=== PATIENT | male | born 1980 | race Caucasian/White ===

== ENCOUNTER 2020-04-29 09:24 | Observation (INO) | payer BC, OTHER ==
[~2020-04-29] VITALS: Ht 177.8 cm; Wt 89.4 kg
[~2020-04-29 09:24] MED LIST: AZOR 10-40 MG1 EACH PO; METOPROLOL TART25 MG PO
[2020-04-29 10:05] LABS: BASOPHILS # (AUTO) 0.1 (0.0-0.1); BASOPHILS % 1.6 % (0.0-1.0); EOSINOPHILS # (AUTO) 0.1 (0.0-0.4); EOSINOPHILS % 2.6 % (0.0-6.0); HEMATOCRIT 30.9 % (38.2-49.6); HEMOGLOBIN 10.3 g/dL (14.0-18.0); LYMPHOCYTES # (AUTO) 0.9 (1.0-3.2); LYMPHOCYTES % 22.1 % (18.0-39.1); MEAN CORPUSCULAR HEMOGLOBIN 34.7 pg (28-32); MEAN CORPUSCULAR HGB CONC 33.3 g/dL (31-35); MONOCYTES # (AUTO) 0.5 (0.2-0.8); MONOCYTES % 11.7 % (4.4-11.3); NEUTROPHILS # (AUTO) 2.3 (2.1-6.9); NEUTROPHILS % 60.2 % (38.7-80.0); PLATELET COUNT 189 x10e3/uL (140-360); RED BLOOD COUNT 2.97 x10e6/uL (4.3-5.7); RED CELL DISTRIBUTION WIDTH 12.6 % (11.7-14.4)
[2020-04-29 10:37] LABS: ALBUMIN 4.3 g/dL (3.5-5.0); ALBUMIN/GLOBULIN RATIO 1.2 (0.8-2.0); ANION GAP 21.2 mmol/L (8-16); CALCIUM 10.1 mg/dL (8.4-10.2); CREATININE, SERUM 3.75 mg/dL (0.72-1.25); POTASSIUM 4.2 mmol/L (3.5-5.1)
[2020-04-29 10:44] LABS: CREATINE KINASE MB 0.9 ng/mL (0-5.0)
--- NOTE | 2020-04-29 10:47 | Emergency Department Note ---
History of Present Illnes History of Present Illness Chief Complaint: General Medicine Complaints History of Present Illness This is a 39 year old male arrives to the ED after a syncopal episode yesterday. Spoke to Janice Harris and from patient's PCPs office given their concerns of recent acute kidney injury as well as other abnormal lab work. Patient states this is worse with any Over walk long distances. Patient admits to multiple episodes of "passing out".. Chief Complaint Comment PATIENT IN FROM DR DILLON'S OFFICE FOR EVALUATION OF ABNORMAL LABS AND SYNCOPE. PATIENT STATES HAS BEEN FEELING POORLY FOR ANOUT A M ONT. PATIENT REPORTS DIZZINESS AND 2 SYNCOPAL EPISODES AT HOME. PATIENT ALERT AND ORIENTED, RESP EVEN AND NONLABORED, APPEARS IN NO DISTRESS Historian: Patient Arrival Mode: Car Onset (how long ago): day(s) Severity: mild Onset quality: sudden Duration (how long): day(s) Timing of current episode: intermittent Progression: worsening Chronicity: new Past Medical/Family History Physician Review I have reviewed the patient's past medical and family history. Any updates have been documented here. Past Medical History Recent Fever: No Clinical Suspicion of Infectio: No New/Unexplained Change in Ment: No Past Medical History: Hypertension Past Surgical History: Hip Replacement Other Surgery: RIGHT ANKLE BILATERAL HIP REPLACEMENT RIGHT HAND SURGERY LEFT KNEE SURGERY Family History Family history of heart diseas: Yes Other Last Tetanus: OOD Review of Systems Review of Systems Constitutional: Reports as per HPI, Reports weakness EENTM: Reports no symptoms Cardiovascular: Reports no symptoms Respiratory: Reports no symptoms Gastrointestinal: Reports no symptoms Genitourinary: Reports no symptoms Musculoskeletal: Reports no symptoms Integumentary: Reports no symptoms Neurological: Reports as per HPI Psychological: Reports no symptoms Endocrine: Reports no symptoms Hematological/Lymphatic: Reports no symptoms Physical Exam Related Data Allergies: Coded Allergies: codeine (Verified Allergy, Mild, SOB, 04/29/20) Triage Vital Signs Vital Signs Date Time Temp Pulse Resp B/P (MAP) Pulse Ox O2 Delivery O2 Flow Rate FiO2 04/29/20 09:24 97.1 86 18 134/82 99 Vital signs reviewed: Yes Physical Exam CONSTITUTIONAL Constitutional: Present well-developed, Present well-nourished HENT HENT: Present normocephalic, Present atraumatic, Present oropharynx clear/moist, Present nose normal HENT L/R: Present left ext ear normal, Present right ext ear normal EYES Eyes: Reports PERRL, Reports conjunctivae normal NECK Neck: Present ROM normal PULMONARY Pulmonary: Present effort normal, Present breath sounds normal CARDIOVASCULAR Cardiovascular: Present regular rhythm, Present heart sounds normal, Present capillary refill normal, Present normal rate GASTROINTESTINAL Abdominal: Present soft, Present nontender, Present bowel sounds normal GENITOURINARY Genitourinary: Present exam deferred SKIN Skin: Present warm, Present dry MUSCULOSKELETAL Musculoskeletal: Present ROM normal NEUROLOGICAL Neurological: Present alert, Present oriented x 3, Present no gross motor or sensory deficits PSYCHOLOGICAL Psychological: Present mood/affect normal, Present judgement normal Results Laboratory Result Diagram: 04/29/20 0933 Laboratory Laboratory Tests Test 04/29/20 09:33 White Blood Count 3.85 x10e3/uL (4.8-10.8) Red Blood Count 2.97 x10e6/uL (4.3-5.7) Hemoglobin 10.3 g/dL (14.0-18.0) Hematocrit 30.9 % (38.2-49.6) Mean Corpuscular Volume 104.0 fL (81-99) Mean Corpuscular Hemoglobin 34.7 pg (28-32) Mean Corpuscular Hemoglobin Concent 33.3 g/dL (31-35) Red Cell Distribution Width 12.6 % (11.7-14.4) Platelet Count 189 x10e3/uL (140-360) Neutrophils (%) (Auto) 60.2 % (38.7-80.0) Lymphocytes (%) (Auto) 22.1 % (18.0-39.1) Monocytes (%) (Auto) 11.7 % (4.4-11.3) Eosinophils (%) (Auto) 2.6 % (0.0-6.0) Basophils (%) (Auto) 1.6 % (0.0-1.0) Neutrophils # (Auto) 2.3 (2.1-6.9) Lymphocytes # (Auto) 0.9 (1.0-3.2) Monocytes # (Auto) 0.5 (0.2-0.8) Eosinophils # (Auto) 0.1 (0.0-0.4) Basophils # (Auto) 0.1 (0.0-0.1) Absolute Immature Granulocyte (auto 0.07 x10e3/uL (0-0.1) Lab results reviewed: Yes Laboratory comments Laboratory Tests Test 04/29/20 10:39 04/29/20 09:33 White Blood Count 3.85 x10e3/uL (4.8-10.8) Red Blood Count 2.97 x10e6/uL (4.3-5.7) Hemoglobin 10.3 g/dL (14.0-18.0) Hematocrit 30.9 % (38.2-49.6) Mean Corpuscular Volume 104.0 fL (81-99) Mean Corpuscular Hemoglobin 34.7 pg (28-32) Mean Corpuscular Hemoglobin Concent 33.3 g/dL (31-35) Red Cell Distribution Width 12.6 % (11.7-14.4) Platelet Count 189 x10e3/uL (140-360) Neutrophils (%) (Auto) 60.2 % (38.7-80.0) Lymphocytes (%) (Auto) 22.1 % (18.0-39.1) Monocytes (%) (Auto) 11.7 % (4.4-11.3) Eosinophils (%) (Auto) 2.6 % (0.0-6.0) Basophils (%) (Auto) 1.6 % (0.0-1.0) Neutrophils # (Auto) 2.3 (2.1-6.9) Lymphocytes # (Auto) 0.9 (1.0-3.2) Monocytes # (Auto) 0.5 (0.2-0.8) Eosinophils # (Auto) 0.1 (0.0-0.4) Basophils # (Auto) 0.1 (0.0-0.1) Absolute Immature Granulocyte (auto 0.07 x10e3/uL (0-0.1) Sodium Level 134 mmol/L (136-145) Potassium Level 4.2 mmol/L (3.5-5.1) Chloride Level 100 mmol/L (98-107) Carbon Dioxide Level 17 mmol/L (22-29) Anion Gap 21.2 mmol/L (8-16) Blood Urea Nitrogen 61 mg/dL (7-26) Creatinine 3.75 mg/dL (0.72-1.25) Estimat Glomerular Filtration Rate 18 ML/MIN (60-) BUN/Creatinine Ratio 16 (6-25) Glucose Level 95 mg/dL (74-118) Calcium Level 10.1 mg/dL (8.4-10.2) Total Bilirubin 0.3 mg/dL (0.2-1.2) Aspartate Amino Transf (AST/SGOT) 172 IU/L (5-34) Alanine Aminotransferase (ALT/SGPT) 183 IU/L (0-55) Alkaline Phosphatase 55 IU/L (40-150) Creatine Kinase 50 IU/L (30-200) Creatine Kinase MB 0.90 ng/mL (0-5.0) Troponin I 0.012 ng/mL (0-0.300) Total Protein 7.8 g/dL (6.5-8.1) Albumin 4.3 g/dL (3.5-5.0) Globulin 3.5 g/dL (2.3-3.5) Albumin/Globulin Ratio 1.2 (0.8-2.0) Procedures 12 Lead ECG Interpretation ECG Interpretation : ECG: ECG 1 Prior ECG tracings: reviewed Rate: normal QRS axis: normal ST segments normal: Yes T wave inversion: II, III, aVF, V1-V6 Assessment & Plan Medical Decision Making MDM 39-year-old male arrives to the ED with concerns of dizziness, multiple syncopal episodes. Patient's lab work concerning for acute renal insufficiency, case discussed with Dr. Sanchez Assessment & Plan Final Impression: (1) Syncope (2) JUAN (acute kidney injury) Depart Disposition: ADMITTED Last Vital Signs Date Time Temp Pulse Resp B/P (MAP) Pulse Ox O2 Delivery O2 Flow Rate FiO2 04/29/20 09:24 97.1 86 18 134/82 99 Home Meds Reported Medications Amlodipine Bes/Olmesartan Med (SHERI 10-40 MG TABLET) 1 Each Tablet, 1 TAB PO DAILY 08/20/14 Metoprolol Tartrate (METOPROLOL TARTRATE) 25 Mg Tablet, 25 MG PO BID, TAB 08/20/14 LEVY PALOMO DO Apr 29, 2020 11:04
[2020-04-29 11:55] VITALS: BP 129/81
[2020-04-29 11:59] VITALS: BP 129/71
--- NOTE | 2020-04-29 12:00 | NUR ---
The pt. arrived from the ER to room 203 and was welcomed to the unit. Admitting procedures were carried out and the drLetitia was called to request further orders.
[2020-04-29 12:15] VITALS: BP 129/81
[2020-04-29] MEDS ORDERED: SODIUM CHLORIDE 0.9% 1000ML 1,000 ML IV SCH (14:15)
--- NOTE | 2020-04-29 14:15 | NUR ---
Second call placed t Dr. Sanchez for orders and orders received post imparting lab results. Consult for renal specialist received and called.
[2020-04-29] MEDS ORDERED: SODIUM BICARBONATE 8.4% 50 ML VIAL IV STA (14:31)
--- NOTE | 2020-04-29 14:35 | NUR ---
I spoke with Dr. Noyola nephrology and order received to add sodium bicarb to iv fluids.
[2020-04-29 15:50] VITALS: BP 108/71
--- NOTE | 2020-04-29 16:17 | Diagnostic Imaging Report ---
EXAM: Renal Ultrasound INDICATION: ^acute kidneyinjury COMPARISON: None TECHNIQUE: Transverse and longitudinal images of the kidneys and bladder were obtained. FINDINGS: Right Kidney: Length: 10.3 cm Appearance: Normal echogenicity. Collecting system: No hydronephrosis Stones: None Cyst/Mass: None Left Kidney: Length: 10.7 cm Appearance: Normal echogenicity. Collecting system: No hydronephrosis Stones: None Cyst/Mass: None Bladder: No mass or calculi. Bilateral ureteral jets visualized. Prevoid volume estimate of 13 cc. The prostate is not well visualized. Incidental note is made of hepatic steatosis. IMPRESSION: No renal calculi or hydronephrosis. Signed by: Aris Howe MD on 04/29/2020 4:14 PM
[2020-04-29] MEDS: SODIUM BICARBONATE 8.4% 100 ML in SODIUM CHLORIDE 0.45% 1,000 ML IV SCH (16:51)
--- NOTE | 2020-04-29 18:25 | NUR ---
Renal Consult Note - 04/29/2020 History of Present Illness Chief Complaint: episodes of syncope and passing out History of Present Illness 39 yo male with h/o early onset HTN was sent to hospital because of elevated creatinine. He reports feeling weak, dizzy and has had 2 episodes when he passed out in last one month. He had a hip surgery in 10/29 and was told his renal function was out of range at that time probably from volume deple tion. About 2 weeks later he had to spend a night in ER and was told he was in alcohol withdrawal. Since then he has not repeated his blood tests until now when his creatinine was found to be out of range. He does report poor PO intake but no other complaints. He has no symptoms or signs of obstructive Uropathy. He was diagnosed with HTN in early 20s but was never tested for secondary HTN acc to him. Patient also reports taking multiple doses of Advil for 3 years everyday for pain in hips. Past Medical History Recent Fever: No Clinical Suspicion of Infectio: No New/Unexplained Change in Ment: No Past Medical History: Hypertension Past Surgical History: Hip Replacement Other Surgery: RIGHT ANKLE BILATERAL HIP REPLACEMENT RIGHT HAND SURGERY LEFT KNEE SURGERY Family History Family history of heart diseas: Yes Other Last Tetanus: OOD Review of Systems Constitutional: Reports as per HPI, Reports weakness EENTM: Reports no symptoms Cardiovascular: Reports no symptoms Respiratory: Reports no symptoms Gastrointestinal: Reports no symptoms Genitourinary: Reports no symptoms Musculoskeletal: Reports no symptoms Integumentary: Reports no symptoms Neurological: Reports as per HPI Psychological: Reports no symptoms Endocrine: Reports no symptoms Hematological/Lymphatic: Reports no symptoms Physical Exam Allergies: Coded Allergies: codeine (Verified Allergy, Mild, SOB, 04/29/20) Triage Vital Signs Vital Signs Date Time TempPulseRespB/P (MAP)Pulse OxO2 DeliveryO2 Flow RateFiO2 04/29/20 09:[id number]/[id number] Vital signs reviewed: Yes Physical Exam Constitutional: Present well-developed, Present well-nourished HENT: Present normocephalic, Present atraumatic, Present oropharynx clear/moist, Present nose normal Eyes: Reports PERRL, Reports conjunctivae normal Neck: Present ROM normal Pulmonary: Present effort normal, Present breath sounds normal Cardiovascular: Present regular rhythm, Present heart sounds normal, Present capillary refill normal, Present normal rate Abdominal: Present soft, Present nontender, Present bowel sounds normal Genitourinary: Present exam deferred Skin: Present warm, Present dry Musculoskeletal: Present ROM normal Neurological: Present alert, Present oriented x 3, Present no gross motor or sensory deficits Psychological: Present mood/affect normal, Present judgement normal Results - Lab results reviewed in detail - importantly - Na 134, K 4.2, BUN 61, Cr 3.75, CO2 17,Ca 10.1 - HgB 10.1, Plt 189 - AST 172, ALT 183 Assessment & Plan Ac Kidney Injury Likely on CKD, possible NSAID associated Nephropathy. Patient has taken heavy doses of Advil between 2016 - 2019 but claims to have stopped it now. volume depletion Metabolic Acidosis Hypertension Anemia - ??? of chronic disease Mild Hypercalcemia - from volume depletion Plan - - continue with IVF - continue bicarb - will get Renal US with Doppler - will need to rule out secondary Hypertension. - work up can be done as outpatient - strict I & O - no Nephrotoxins like NSAID - get UPEP/SPEP with JEVON
[2020-04-29 18:45] LABS: % IRON SATURATION 42 % (15-50); IRON 133 ug/dL (65-175); TOTAL IRON BINDING CAPACITY 316 ug/dL (261-478); TRANSFERRIN 226 mg/dL (174-364)
[2020-04-29 20:00] VITALS: BP 101/67
[2020-04-29 20:47] LABS: CREATINE KINASE MB 0.7 ng/mL (0-5.0)
[2020-04-29 20:53] VITALS: BP 101/67
--- NOTE | 2020-04-29 21:56 | History and Physical ---
CHIEF COMPLAINT: A 39-year-old gentleman, who came into the hospital for acute renal failure. HISTORY OF PRESENTING ILLNESS: Mr. Riki Duran with a history of hypertension, was usual in his state of health until about a couple of weeks ago, the patient started to have some dizziness, some near syncopal episodes. The patient was seen in the primary care office yesterday and lab work was done and the patient was seen to have elevated creatinine and low hemoglobin count and also elevated liver enzymes count. The patient brought in the hospital for reperfusion of kidneys. PAST MEDICAL HISTORY: 1. History of hypertension as mentioned above. 2. History of bilateral hip replacement for osteonecrosis. 3. History of hand surgery and left knee surgery. SOCIAL HISTORY: Positive for EtOH. He drinks about 6 drinks a day. No smoking. No history of drug abuse. FAMILY HISTORY: Positive for both mother and father with heart disease and hypertension. REVIEW OF SYSTEMS: Negative for chest pain. No shortness of breath. Positive for dizziness. Positive for syncope. No nausea. No vomiting. No diarrhea. No constipation. No rectal bleeding. No hematochezia. No hematemesis. No polyuria. No polydipsia. ALLERGIES: THE PATIENT IS ALLERGIC TO CODEINE. PHYSICAL EXAMINATION: GENERAL: The patient is alert and oriented x3, in no acute distress. HEENT: Normocephalic and atraumatic. Pupils are reactive to light and accommodation. CVS: S1 and S2 normal. Regular rate and rhythm. ABDOMEN: Soft, nontender, nondistended. EXTREMITIES: No clubbing. No cyanosis. Positive for decreased hair in the lower extremities. The patient has apparently had also vein procedure. The patient with surgical history of venous ablation. LABORATORY VALUES: White count is 3.85, hemoglobin of 10.3, hematocrit of 30.9, RDW is 12.6. Chemistry shows sodium 134, potassium is 4.2, BUN of 61, creatinine of 3.75. EGFR of 18. AST and ALT 172 and 183. SEROLOGY: Coronavirus is pending. IMAGING STUDIES: Renal ultrasound which was ordered showed no renal calculi or hydronephrosis. Right kidney and left kidney normal in size, normal echogenicity. ASSESSMENT: Mr. Riki Duran with: 1. Acute renal failure on top of chronic renal failure. The patient was apparently told he had chronic renal failure when he had bilateral hip replacement and the patient also has to be taken away from NSAID. He has a 3-year history of NSAID. 2. Hypertension. Probably, we will take him off the ARB use and hydrochlorothiazide because of the florid prerenal renal failure. 3. History of NSAID use in the past. 4. History of alcohol abuse. 5. History of avascular necrosis of bilateral hips. PLAN: Hydration. Change his medication to nifedipine. Renal artery ultrasound will also be done and finally, the patient will continue with IV hydration. Further recommendation per clinical course. For further information, look in the chart. A consult also with Renal has been done too. We will follow up with Renal. MD BON Klein/MODL /[id number]
[2020-04-30] VITALS (7 sets, daily range): BP systolic 97–118; BP diastolic 54–79
[2020-04-30] MEDS: SODIUM BICARBONATE 8.4% 100 ML in SODIUM CHLORIDE 0.45% 1,000 ML IV SCH ×2 (00:50→08:27)
[2020-04-30 01:44] LABS: CREATINE KINASE 39 IU/L (30-200)
[2020-04-30 05:34] LABS: BASOPHILS % 0.8 % (0.0-1.0); EOSINOPHILS # (AUTO) 0.1 (0.0-0.4); EOSINOPHILS % 3.7 % (0.0-6.0); HEMATOCRIT 27.2 % (38.2-49.6); LYMPHOCYTES % 26.8 % (18.0-39.1); MEAN CORPUSCULAR HEMOGLOBIN 34.7 pg (28-32); MEAN CORPUSCULAR HGB CONC 33.1 g/dL (31-35); MONOCYTES # (AUTO) 0.5 (0.2-0.8); MONOCYTES % 12.1 % (4.4-11.3); NEUTROPHILS # (AUTO) 2.1 (2.1-6.9); NEUTROPHILS % 55.6 % (38.7-80.0); PLATELET COUNT 188 x10e3/uL (140-360); RED BLOOD COUNT 2.59 x10e6/uL (4.3-5.7); RED CELL DISTRIBUTION WIDTH 12.1 % (11.7-14.4)
[2020-04-30 05:51] LABS: ALBUMIN 3.7 g/dL (3.5-5.0); ALBUMIN/GLOBULIN RATIO 1.2 (0.8-2.0); ANION GAP 15.2 mmol/L (8-16); CALCIUM 9.2 mg/dL (8.4-10.2); CREATININE, SERUM 2.5 mg/dL (0.72-1.25); POTASSIUM 4.2 mmol/L (3.5-5.1)
--- NOTE | 2020-04-30 08:07 | Progress Note ---
DATE: SUBJECTIVE: The patient is a 39-year-old gentleman with a history of acute renal failure, came in with dehydration and acute renal failure. He continues to be on IV hydration, feeling better. No chest pain. No shortness of breath. No nausea. No vomiting. No diarrhea. No syncopal episodes and no dizziness noted at this time, which patient had. OBJECTIVE: VITAL SIGNS: Temperature is 98, pulse of 79, respirations of 18, blood pressure is 97/59. HEENT: Normocephalic and atraumatic. Pupils are reactive. CVS: S1 and S2 normal. Regular rate and rhythm. ABDOMEN: Soft, nontender, nondistended. EXTREMITIES: No clubbing, no cyanosis, no edema. MEDICATIONS: The patient is on nifedipine 60 mg daily. The patient is also getting IV fluids at 125 mL an hour. LABORATORY VALUES: Today his white count is 3.81, hemoglobin of 9.0, hematocrit 27.2, monocyte 12.1. Chemistry shows sodium 137, potassium 4.2, BUN of 51, creatinine of 2.50, which is an improvement. AST and ALT are still elevated at 106 and 143. IMAGING STUDIES: Renal ultrasound, normal parenchyma and no mass or calculi. ASSESSMENT: Mr. Riki Varghese with: 1. Acute on chronic renal failure, prerenal in nature. The patient continues to have IV fluids. I have explained the patient avoidance of NSAIDs and also improvisation on water intake. 2. Hypertension. Continue with current medication. 3. History of NSAID use in the past. 4. Acute alcoholic hepatitis with history of alcohol abuse. I talked to the patient about discontinuing of alcohol and alcohol dependency. 5. History of avascular necrosis of bilateral hips. PLAN: Continue the same plan and repeat BMP and CMP tomorrow. Further recommendation per clinical course. We will continue to monitor the patient along with Nephrology. MD SHAINA KleinJ/MODL /[id number]
[2020-04-30] MEDS: NIFEDIPINE CR 30 MG TAB PO SCH (08:26)
--- NOTE | 2020-04-30 11:04 | NUR ---
The pt. is out of the room for renal doppler US.
--- NOTE | 2020-04-30 12:38 | Diagnostic Imaging Report ---
EXAM: Renal Ultrasound with Dopplers INDICATION: ^Acute kidney injury ^Y COMPARISON: 04/29/2020 TECHNIQUE: Transverse and longitudinal images of the kidneys and bladder were obtained. Color Doppler and waveform spectral analysis were obtained of the renal vessels and abdominal aorta. FINDINGS: The technologist reports a technically difficult study due to large amount of bowel gas. Right Kidney: Size: 10 cm in length Echogenicty: Normal Parenchymal thickness: Normal Collecting system: No hydronephrosis Stones: None Cyst/Mass: None Left Kidney: Size: 10.4 cm in length cm Echogenicity: Normal Parenchymal thickness: Normal Collecting system: No hydronephrosis Stones: None Cyst/Mass: None Bladder: Normal Dopplers: Aorta PSV = 60 cm/sec Right Kidney: Main renal artery PSV: Ostium = not well seen Proximal = not well seen Mid = 24 cm/sec Distal = 70 cm/sec Intrarenal (segmental or interlobar) arteries: Acceleration time: Normal Resistive index: Normal RA PSV/aorta PSV ratio (RAR) = 1.2 Left Kidney: Main renal artery PSV: Ostium = 38 cm/sec Proximal = 40 cm/sec Mid = 52 cm/sec Distal = 30 cm/sec Intrarenal (segmental or interlobar) arteries: Acceleration time: Normal Resistive index: Normal RA PSV/aorta PSV ratio (RAR) = 0.87 Main Renal Veins: Flow Present IMPRESSION: No gross evidence of hemodynamically significant renal artery stenosis on this technically limited examination. If there is continued clinical concern for renal artery stenosis a more sensitive evaluation may be obtained with CT and/or conventional angiography. Signed by: Jarred Alicea MD on 04/30/2020 12:35 PM
[2020-04-30] MEDS ORDERED: SODIUM CHLORIDE 0.9% 1000ML 1,000 ML IV SCH (17:30)
[2020-05-01] VITALS: BP 104/63
[2020-05-01 00:21] VITALS: BP 104/63
[2020-05-01 04:00] VITALS: BP 100/62
[2020-05-01 06:45] LABS: BASOPHILS % 0.9 % (0.0-1.0); EOSINOPHILS # (AUTO) 0.2 (0.0-0.4); EOSINOPHILS % 4.5 % (0.0-6.0); HEMATOCRIT 26.6 % (38.2-49.6); HEMOGLOBIN 8.8 g/dL (14.0-18.0); LYMPHOCYTES # (AUTO) 1.1 (1.0-3.2); LYMPHOCYTES % 30.4 % (18.0-39.1); MEAN CORPUSCULAR HEMOGLOBIN 34.1 pg (28-32); MEAN CORPUSCULAR HGB CONC 33.1 g/dL (31-35); MEAN CORPUSCULAR VOLUME 103.1 fL (81-99); MONOCYTES # (AUTO) 0.4 (0.2-0.8); MONOCYTES % 10.8 % (4.4-11.3); NEUTROPHILS # (AUTO) 1.9 (2.1-6.9); NEUTROPHILS % 52.8 % (38.7-80.0); PLATELET COUNT 167 x10e3/uL (140-360); RED BLOOD COUNT 2.58 x10e6/uL (4.3-5.7); RED CELL DISTRIBUTION WIDTH 12.2 % (11.7-14.4)
[2020-05-01 07:06] LABS: ALBUMIN 3.7 g/dL (3.5-5.0); ALBUMIN/GLOBULIN RATIO 1.2 (0.8-2.0); ANION GAP 13.3 mmol/L (8-16); CALCIUM 8.7 mg/dL (8.4-10.2); CREATININE, SERUM 1.94 mg/dL (0.72-1.25); POTASSIUM 4.3 mmol/L (3.5-5.1)
[2020-05-01 07:45] VITALS: BP 109/78
--- NOTE | 2020-05-01 09:10 | NUR ---
Notified Dr. Roger Sanchez with patient's am lab results, received orders to discharge patient and f/u with primary care doctor in about a week and with renal as discussed with renal.
--- NOTE | 2020-05-01 09:31 | Progress Note ---
DATE: SUBJECTIVE: A 39-year-old gentleman, who came in with acute renal failure and dizziness. The patient is currently asymptomatic. No chest pain. No shortness of breath. No nausea. No vomiting. No presyncope, no syncope and no dizziness present at this time. He is being hydrated at 125 mL an hour for normal saline. No chest pains and no palpitations. PHYSICAL EXAMINATION: VITAL SIGNS: Temperature is 97.8, pulse of 82, respirations of 18, blood pressure is 100/62, and pulse oximetry of 99%. HEENT: Normocephalic, atraumatic. Pupils are reactive to light and accommodation. CVS: S1 and S2 normal. Regular rate and rhythm. LUNGS: Clear to auscultation. ABDOMEN: Soft, nontender, nondistended. EXTREMITIES: No clubbing, no cyanosis, no edema. LABORATORY VALUES: Lab values are pending today. IMAGING STUDIES: We did Doppler study, ultrasound of renal arteries, which showed no gross evidence of hemodynamically significant renal artery stenosis on this technically limited examination. ASSESSMENT: Mr. Riki Varghese with, 1. Acute on chronic renal failure. We will wait for his lab values to come back, most possibly discharge home. 2. Nonsteroidal anti-inflammatory drugs use. Avoid nonsteroidal anti-inflammatory drugs use. 3. Hypertension. Continue with current medication. 4. Acute alcoholic hepatitis. Discussed with the patient on alcohol cessation. PLAN: Discharge today depending on BNP results and then CMP results. Further recommendation per clinical course. MD BON Klein/MODL /[id number]
[2020-05-01] MEDS: NIFEDIPINE CR 30 MG TAB PO SCH (09:40)
== END 2020-05-01 10:46 | disposition home or self-care (01) ==
LOC: ER 09:24 → ERHOLD 10:00 → MED/SURG2 11:43
PROVIDERS: ADMIT Family Medicine; ATTEND Family Medicine
DX: N17.9 Acute kidney failure, unspecified (principal); Z11.59 Encounter for screening for other viral diseases; Z96.643 Presence of artificial hip joint, bilateral; F10.10 Alcohol abuse, uncomplicated; I12.9 Hypertensive chronic kidney disease with stage 1 through stage 4 chronic kidney disease, or unspecified chronic kidney disease; N18.9 Chronic kidney disease, unspecified; K70.10 Alcoholic hepatitis without ascites
CPT/HCPCS: 36415 ×3; 76770; 80053 ×3; 82550 ×2; 82553 ×2; 83540; 83735; 84466; 84484 ×2; 85025 ×3; 87635; 93005; 93976; 99284; G0378 ×3; J7030

== ENCOUNTER 2020-06-10 19:30 | Emergency (ER) | payer BC, OTHER ==
[~2020-06-10] VITALS: Ht 177.8 cm; Wt 89.4 kg
[2020-06-10] MEDS ORDERED: SODIUM CHLORIDE 0.9% 1000ML 1,000 ML IV ONE (19:45)
[2020-06-10 19:58] LABS: BASOPHILS # (AUTO) 0.1 (0.0-0.1); EOSINOPHILS # (AUTO) 0.2 (0.0-0.4); EOSINOPHILS % 3.4 % (0.0-6.0); HEMATOCRIT 35.4 % (38.2-49.6); HEMOGLOBIN 12.1 g/dL (14.0-18.0); LYMPHOCYTES # (AUTO) 1.9 (1.0-3.2); LYMPHOCYTES % 30.7 % (18.0-39.1); MEAN CORPUSCULAR HEMOGLOBIN 35.5 pg (28-32); MEAN CORPUSCULAR HGB CONC 34.2 g/dL (31-35); MEAN CORPUSCULAR VOLUME 103.8 fL (81-99); MONOCYTES # (AUTO) 0.6 (0.2-0.8); MONOCYTES % 9.6 % (4.4-11.3); NEUTROPHILS # (AUTO) 3.4 (2.1-6.9); NEUTROPHILS % 54.5 % (38.7-80.0); PLATELET COUNT 164 x10e3/uL (140-360); RED BLOOD COUNT 3.41 x10e6/uL (4.3-5.7); RED CELL DISTRIBUTION WIDTH 13.7 % (11.7-14.4)
[2020-06-10 20:11] LABS: ALANINE AMINOTRANSFERASE 126 IU/L (0-55); ALBUMIN 4.3 g/dL (3.5-5.0); ALBUMIN/GLOBULIN RATIO 1.4 (0.8-2.0); ALKALINE PHOSPHATASE 55 IU/L (40-150); ANION GAP 22.1 mmol/L (8-16); BLOOD UREA NITROGEN 6 mg/dL (7-26); BUN/CREATININE RATIO 5 (6-25); CALCIUM 8.8 mg/dL (8.4-10.2); CARBON DIOXIDE 15 mmol/L (22-29); CHLORIDE 96 mmol/L (98-107); CREATININE, SERUM 1.17 mg/dL (0.72-1.25); EST GLOMERULAR FILTRATION RATE > 60 ML/MIN (60-); GLUCOSE 85 mg/dL (74-118); POTASSIUM 4.1 mmol/L (3.5-5.1); SODIUM 129 mmol/L (136-145)
[2020-06-10 20:12] LABS: AMYLASE 50 U/L (25-125); LIPASE 41 U/L (8-78)
--- NOTE | 2020-06-10 20:13 | Emergency Department Note ---
History of Present Illnes History of Present Illness Chief Complaint: COVID PUI History of Present Illness This is a 39 year old male PRESENTS TO THE ER C/O CHILLS, FATIGUE AND HEADACHE ONSET THIS AM; PT ALSO REPORTS DIARRHEA X1 WEEK; PT REPORTS RECENTLY TRAVELING TO [place]; DENIES CP OR SOB; RESP EVEN/UNLABORED; SKIN WARM, DRY AND COLOR WNL FOR PT;SPO2 100% RA . Historian: Patient Arrival Mode: Car Onset (how long ago): day(s) (7) Location: [facility] [place] Quality: body aches, diarrhea, chills and headache this morning Radiation: Reports non-radiation Severity: mild, moderate Duration (how long): day(s) (7) Timing of current episode: intermittent Progression: worsening Chronicity: recurrent Context: Reports recent travel ([place] 2 weeks ago); Denies recent illness, Denies recent surgery Relieving factors: none Exacerbating factors: none Associated symptoms: Reports fever/chills, Reports headaches, Reports loss of appetite, Reports malaise, Reports weakness, Reports other (diarrhea) Treatments prior to arrival: none Past Medical/Family History Physician Review I have reviewed the patient's past medical and family history. Any updates have been documented here. Past Medical History Recent Fever: No Clinical Suspicion of Infectio: No New/Unexplained Change in Ment: No Past Medical History: Hypertension Other Medical History: Father lung cancer Past Surgical History: Hip Replacement, Knee Replacement Other Surgery: ankle repair meniscus tear Social History Smoking Cessation: Never Smoker Alcohol Use: Daily Any Illegal Drug Use: No Family History Family history of heart diseas: No Other family history htn Other Last Tetanus: OOD Review of Systems Review of Systems Constitutional: Reports as per HPI EENTM: Reports no symptoms Cardiovascular: Reports no symptoms Respiratory: Reports no symptoms Gastrointestinal: Reports as per HPI Genitourinary: Reports no symptoms Musculoskeletal: Reports no symptoms Integumentary: Reports no symptoms Neurological: Reports no symptoms Psychological: Reports no symptoms Endocrine: Reports no symptoms Hematological/Lymphatic: Reports no symptoms Physical Exam Related Data Allergies: Coded Allergies: codeine (Verified Allergy, Mild, SOB, 04/29/20) Triage Vital Signs Vital Signs Date Time Temp Pulse Resp B/P (MAP) Pulse Ox O2 Delivery O2 Flow Rate FiO2 06/10/20 19:38 97.9 77 18 129/94 100 Room Air Vital signs reviewed: Yes Physical Exam CONSTITUTIONAL Constitutional: Present well-developed, Present well-nourished HENT HENT: Present normocephalic, Present atraumatic, Present oropharynx clear/moist, Present nose normal HENT L/R: Present left ext ear normal, Present right ext ear normal EYES Eyes: Reports PERRL, Reports conjunctivae normal NECK Neck: Present ROM normal PULMONARY Pulmonary: Present effort normal, Present breath sounds normal CARDIOVASCULAR Cardiovascular: Present regular rhythm, Present heart sounds normal, Present capillary refill normal, Present normal rate GASTROINTESTINAL Abdominal: Present soft, Present nontender, Present bowel sounds normal GENITOURINARY Genitourinary: Present exam deferred SKIN Skin: Present warm, Present dry MUSCULOSKELETAL Musculoskeletal: Present ROM normal NEUROLOGICAL Neurological: Present alert, Present oriented x 3, Present no gross motor or sensory deficits PSYCHOLOGICAL Psychological: Present mood/affect normal, Present judgement normal Results Laboratory Laboratory Laboratory Tests Test 06/10/20 19:41 White Blood Count 6.23 x10e3/uL (4.8-10.8) Red Blood Count 3.41 x10e6/uL (4.3-5.7) Hemoglobin 12.1 g/dL (14.0-18.0) Hematocrit 35.4 % (38.2-49.6) Mean Corpuscular Volume 103.8 fL (81-99) Mean Corpuscular Hemoglobin 35.5 pg (28-32) Mean Corpuscular Hemoglobin Concent 34.2 g/dL (31-35) Red Cell Distribution Width 13.7 % (11.7-14.4) Platelet Count 164 x10e3/uL (140-360) Neutrophils (%) (Auto) 54.5 % (38.7-80.0) Lymphocytes (%) (Auto) 30.7 % (18.0-39.1) Monocytes (%) (Auto) 9.6 % (4.4-11.3) Eosinophils (%) (Auto) 3.4 % (0.0-6.0) Basophils (%) (Auto) 1.0 % (0.0-1.0) Neutrophils # (Auto) 3.4 (2.1-6.9) Lymphocytes # (Auto) 1.9 (1.0-3.2) Monocytes # (Auto) 0.6 (0.2-0.8) Eosinophils # (Auto) 0.2 (0.0-0.4) Basophils # (Auto) 0.1 (0.0-0.1) Absolute Immature Granulocyte (auto 0.05 x10e3/uL (0-0.1) Urine Color Yellow (YELLOW) Urine Clarity Sl cloudy (CLEAR) Urine pH 6.5 (5 - 7) Urine Specific [place] 1.015 (1.010-1.025) Urine Protein Negative (NEGATIVE) Urine Glucose (UA) Negative (NEGATIVE) Urine Ketones Negative (NEGATIVE) Urine Blood Negative (NEGATIVE) Urine Nitrite Negative (NEGATIVE) Urine Bilirubin Negative (NEGATIVE) Urine Urobilinogen 0.2 mg/dL (0.2 - 1) Urine Leukocyte Esterase Negative (NEGATIVE) Urine RBC None /HPF (0-5) Urine WBC None /HPF (0-5) Urine Epithelial Cells None /LPF (NONE) Urine Amorphous Sediment Few (FEW) Urine Bacteria None /HPF (NONE) Sodium Level 129 mmol/L (136-145) Potassium Level 4.1 mmol/L (3.5-5.1) Chloride Level 96 mmol/L (98-107) Carbon Dioxide Level 15 mmol/L (22-29) Anion Gap 22.1 mmol/L (8-16) Blood Urea Nitrogen 6 mg/dL (7-26) Creatinine 1.17 mg/dL (0.72-1.25) Estimat Glomerular Filtration Rate > 60 ML/MIN (60-) BUN/Creatinine Ratio 5 (6-25) Glucose Level 85 mg/dL (74-118) Calcium Level 8.8 mg/dL (8.4-10.2) Total Bilirubin 0.6 mg/dL (0.2-1.2) Aspartate Amino Transf (AST/SGOT) 146 IU/L (5-34) Alanine Aminotransferase (ALT/SGPT) 126 IU/L (0-55) Alkaline Phosphatase 55 IU/L (40-150) Total Protein 7.4 g/dL (6.5-8.1) Albumin 4.3 g/dL (3.5-5.0) Globulin 3.1 g/dL (2.3-3.5) Albumin/Globulin Ratio 1.4 (0.8-2.0) Amylase Level 50 U/L (25-125) Lipase 41 U/L (8-78) Laboratory Tests Test 06/10/20 19:41 Lab results reviewed: Yes Laboratory comments PT WITH ELEVATED TRANSAMINASES ON SEVERAL VISITS., PT DOES DRINK ETOH DAILY Imaging Imaging results reviewed: Yes Impressions Procedure: [id number] DX/CHEST SINGLE (PORTABLE) Exam Date: 06/10/20 Exam Time: 2029 REPORT STATUS: Signed EXAMINATION: CHEST SINGLE (PORTABLE) INDICATION: Fever and chills. COMPARISON: None FINDINGS: TUBES and LINES: None. LUNGS: Normal lung volumes. Lungs are clear. No consolidations. PLEURA: No pleural effusion or pneumothorax. HEART AND MEDIASTINUM: The cardiomediastinal silhouette is unremarkable. BONES AND SOFT TISSUES: No acute osseous lesion. Soft tissues are unremarkable. UPPER ABDOMEN: No free air under the diaphragm. IMPRESSION: No focal consolidation, pleural effusion or pneumothorax. Signed by: Cynthia Beasley MD on 06/10/2020 8:57 PM Dictated By: CYNTHIA BEASLEY MD 56 Transcribed By: VITALY on 06/10/202056 COPY TO: TONY ELIAS MD~ Assessment & Plan Medical Decision Making MDM pt with diarrhea and viral syndrome symptoms cbc, cmp, cxr, ua, ordered to eval for electrolyte abnormality, leukocytosis, dehydration, renal failure, pneumonia 1 liter ns iv bolus ordered Assessment & Plan Final Impression: (1) Diarrhea (2) Viral syndrome Depart Disposition: HOME, SELF-CARE Last Vital Signs Date Time Temp Pulse Resp B/P (MAP) Pulse Ox O2 Delivery O2 Flow Rate FiO2 06/10/20 19:38 97.9 77 18 129/94 100 Room Air Home Meds Reported Medications Amlodipine Bes/Olmesartan Med (SHERI 10-40 MG TABLET) 1 Each Tablet, 1 TAB PO DAILY 08/20/14 Metoprolol Tartrate (METOPROLOL TARTRATE) 25 Mg Tablet, 25 MG PO BID, TAB 08/20/14 Medications in the ED Sodium Chloride 1,000 ml @ 999 mls/hr Q1H1M ONCE IV ; Start 06/10/20 at 19:45; Stop 06/10/20 at 20:45 TONY ELIAS MD Jun 10, 2020 20:12
--- NOTE | 2020-06-10 21:00 | Diagnostic Imaging Report ---
EXAMINATION: CHEST SINGLE (PORTABLE) INDICATION: Fever and chills. COMPARISON: None FINDINGS: TUBES and LINES: None. LUNGS: Normal lung volumes. Lungs are clear. No consolidations. PLEURA: No pleural effusion or pneumothorax. HEART AND MEDIASTINUM: The cardiomediastinal silhouette is unremarkable. BONES AND SOFT TISSUES: No acute osseous lesion. Soft tissues are unremarkable. UPPER ABDOMEN: No free air under the diaphragm. IMPRESSION: No focal consolidation, pleural effusion or pneumothorax. Signed by: Noemy Tracey MD on 06/10/2020 8:57 PM
[2020-06-10 21:12] LABS: BILIRUBIN,URINE NEGATIVE (NEGATIVE); CLARITY,URINE SL CLOUDY (CLEAR); COLOR,URINE YELLOW (YELLOW); KETONES,URINE NEGATIVE (NEGATIVE); LEUKOCYTE ESTERASE ,URINE NEGATIVE (NEGATIVE); NITRITE,URINE NEGATIVE (NEGATIVE); PROTEIN,URINE DIPSTICK NEGATIVE (NEGATIVE); URINE UROBILINOGEN 0.2 mg/dL (0.2 - 1)
[2020-06-10 21:24] LABS: AMORPHOUS SEDIMENT,URINE FEW (FEW)
--- OUTSIDE RECORDS SUMMARY | 2020-06-10 21:39 | XMS REPORT | Continuity of Care Document ---
Author Author [facility] t Organization [facility] Address [address] [place] [address] Phone Unavailable Care Team Providers Care Asp Developer Name Role Phone MD NATALY DILLON PCP Jameson ELIAS Attphys Unavailable Ritika MOROCHO Attphys Unavailable ANNE MARIE KIRAN P.A. Attphys Unavailable VERO DELACRUZ M.D. Attphys Unavailable Ritika MOROCHO Admphys Unavailable Payers Payer Name Policy Type Policy Number Effective Date Expiration Date Ritika brito [facility] [id number] 2019 00:00:00 [facility] Cdc Review [id number] [facility] Problems Condition Name Condition Details Condition Category Status Onset Date Resolution Date Last Treatment Date Treating Clinician Comments Source History of arthritis History of arthritis Problem Resolved [facility] History of hypertension History of hypertension Problem Resolved [facility] Left hip pain Left hip pain Problem Active [facility] Avascular necrosis of bone of left hip Avascular necrosis of bone of left hip Problem Active [facility] History of left hip replacement History of left hip replacement Pro blem Active [facility] Right hip pain Right hip pain Problem Active [facility] Primary localized osteoarthritis of left hip Primary l ocalized osteoarthritis of left hip Problem Active [facility] Avascular necrosis of bone of right hip Avascular necrosis o f bone of right hip Problem Active [facility] Osteoarthritis of right hip Osteoarthritis of right hip Problem Active [facility] Status post right hip replacement Status post right hip replacem ent Problem Active [facility] Syncope Problem Active [facility] Acute kidney injury Problem Active [facility] Allergies, Adverse Reactions, Alerts Allergy Name Allergy Type Status Severity Reaction(s) Onset Date Inacti ve Date Treating Clinician Comments Source Codeine Allergy to substance Active Mild SOB 2020-04-29 00:00:00 [facility] Family History Family Member Diagnosis Comments Start Date Stop Date Source Father Family history of malignant neoplasm [facility] Father Family history of hypertension [facility] Father Family history of Heart trouble [facility] Social History Social Habit Start Date Stop Date Quantity Comments Source Sex Assigned At 1980 00:00:00 1980 00:00:00 Male [facility] Smoking Status Start Date Stop Date Source Never smoked tobacco (finding) [facility] Medications Ordered Medication Name Filled Medication Name Start Date Stop Da te Current Medication? Ordering Clinician Indication Dosage Frequency Signature (SIG) Comments Components Source HYDROcodone-Acetaminophen 10-325 MG Oral Tablet HYDROc odone-Acetaminophen 10-325 MG Oral Tablet 2019-11-06 00:00:00 Yes VERO DELACRUZ M.D. TAKE 1 TABLET EVERY 4 HOURS NEEDED FOR PAIN. [facility] traMADol HCl - 50 MG Oral Tablet traMADol HCl - 50 MG Oral T ablet 2019-10-23 00:00:00 Yes ANNE MARIE Copeland 1 TO 2 TABLE T EVERY 6-8 HOURS PRN PN [facility] traMADol HCl - 50 MG Oral Tablet traMADol HCl - 50 MG Oral T ablet 2019-10-15 00:00:00 Yes VERO DELACRUZ M.D. TAKE 1-2 TABLET EVERY 6 TO 8 HOURS NEEDED FOR PAIN. [facility] Vitamin D-3 125 MCG (5000 UT) Oral Tablet Vitamin D-3 125 MCG (5000 UT) Oral Tablet 2019-09-25 00:00:00 Yes VERO DELACRUZ M.D. 1 QD TAKE 1 TABLET Daily FOR 6 WEEKS UNTIL COMPLETED. [facility] Aspirin 325 MG Oral Tablet Aspirin 325 MG Oral Tablet 2016-10-22 00:0 0:00 Yes VERO DELACRUZ M.D. 1 Q0.5D TAKE 1 TABLET TWICE DAILY for 6 weeks [facility] Celecoxib 200 MG Oral Capsule Celecoxib 200 MG Oral Capsule 2015 00:00:00 Yes VERO DELACRUZ M.D. TAKE 1 CAPSULE TWICE DAILY FOR 4 WEEKS [facility] Ibuprofen CAPS Ibuprofen CAPS Yes [facility] traMADol HCl - 50 MG Oral Tablet traMADol HCl - 50 MG Oral Tablet Yes [facility] [place] TABS [place] TABS Yes Uni versity [facility] Metoprolol Tartrate TABS Metoprolol Tartrate TABS Yes [facility] Daryn TABS Daryn TABS Yes Unive rsity [facility] Zyrtec TABS Zyrtec TABS Yes U niversity [facility] Amlodipine Bes/Olmesartan Med (Daryn 10-40 Mg Tablet) 1 Each TABLET Amlodipine Bes/Olmesartan Med (Daryn 10-40 Mg Tablet) 1 Each TABLET Yes 1 Daily [facility] Metoprolol Tartrate Metoprolol Tartrate Yes 25 Twice A Day [facility] Vital Signs Vital Name Observation Time Observation Value Comments Source Body Temperature 2020-05-01 07:45:00 97.9 [degF] [facility] BMI (Body Mass Index) 2020-05-01 00:45:00 28.3 kg/m2 [facility] Weight 2020-04-29 11:48:00 197 [lb_av] [facility] Height 2019-12-25 10:10:00 70 [in_us] [facility] Weight 2019-12-25 10:10:00 195 [lb_av] [facility] Body Mass Index Calculated 2019-12-25 10:10:00 27.98 kg/m2 [facility] Height 2019-11-06 11:15:00 70 [in_us] [facility] Weight 2019-11-06 11:15:00 205 [lb_av] [facility] Body Mass Index Calculated 2019-11-06 11:15:00 29.41 kg/m2 [facility] Height 2019-09-16 14:47:00 70 [in_us] [facility] Weight 2019-09-16 14:47:00 205 [lb_av] [facility] Body Mass Index Calculated 2019-09-16 14:47:00 29.41 kg/m2 [facility] Height 2019-03-30 11:28:00 71 [in_us] [facility] Weight 2019-03-30 11:28:00 205 [lb_av] [facility] Body Mass Index Calculated 2019-03-30 11:28:00 28.59 kg/m2 [facility] Procedures Procedure Date / Time Performed Performing Clinician Oliver perkins US Doppler renal vessels limited 2020-04-30 00:00:00 [facility] Ultrasound, renal 2020-04-29 00:00:00 [facility] Post Op Promis 29 Survey 2019-11-24 00:00:00 [facility] Physical Therapy 2019-11-06 00:00:00 [facility] [UTP] Ortho - Surgery Scheduling 2019-09-25 00:00:00 [facility] Injection, Therapeutic, Prophylactic, Diagnostic 2019-03-30 00:0 0:00 [facility] History of Foot Surgery [facility] Plan of Care Planned Activity Planned Date Details Comments Source Diagnostic Test Pending 2019-10-22 00:00:00 [UTP] Ortho - Grigsby rgery Scheduling [code = [UTP] Ortho - Surgery Scheduling] [facility] Diagnostic Test Pending 2019-10-22 00:00:00 [UTP] Ortho - Grigsby rgery Scheduling [code = [UTP] Ortho - Surgery Scheduling] [facility] Diagnostic Test Pending 2019-10-22 00:00:00 [UTP] Ortho - Grigsby rgery Scheduling [code = [UTP] Ortho - Surgery Scheduling] [facility] Instructions Flank Pain [facility] Encounters Start Date/Time End Date/Time Encounter Type Admission Type Attendi [facility] Care Department Encounter ID Source 2019-10-22 06:26:00 Inpatient [facility] [id number] [facility] 2020-04-29 10:00:00 2020-05-01 10:46:00 Discharged Inpatient (obs) 1 CLARA MOROCHO [facility] [id number] [facility] 2019-12-25 09:45:00 2019-12-25 09:45:00 Appointment; ANNE MARIE KIRAN , PANNE MARIE BREWER, PSaul [facility] [id number] [facility] 2019-12-16 10:00:00 2019-12-16 10:00:00 Appointment; ANNE MARIE KIRAN P.A. ADAMEK, NICOLE, P.A. [facility] [id number] [facility] 2019-11-30 18:07:00 2019-11-30 18:07:00 Outpatient E [facility] [id number] [facility] 2019-11-06 09:30:00 2019-11-06 09:30:00 Appointment; ANNE MARIE KIRAN P.A. ADAMEK, NICOLE, P.A. [facility] [id number] [facility] 2019-10-22 07:45:00 2019-10-22 07:45:00 Appointment; VIANCA DELACRUZ M.D. FREEDHAND, ADAM, M.D. [facility] [id number] [facility] 2019-09-16 10:00:00 2019-09-16 10:00:00 Appointment; VIANCA DELACRUZ M.D. FREEDHAND, ADAM, M.D. [facility] [id number] [facility] 2019-04-09 12:10:00 2019-04-09 12:10:00 Outpatient [facility] [id number] [facility] 2019-03-30 10:30:00 2019-03-30 10:30:00 Appointment; VIANCA DELACRUZ M.D. FREEDHAND, ADAM, M.D. [facility] [id number] [facility] 2016-11-14 13:30:00 2016-11-14 13:30:00 Appointment; ANNE MARIE KIRAN P.A. ADAMEK, NICOLE, P.A. [facility] [id number] [facility] Results Test Description Test Time Test Comments Results Result Comments Source CHEST SINGLE (PORTABLE) 2020-06-10 20:56:00 [place] [address] Patient Name: HYACINTH DRISCOLL MR #: [id number] : 1980 Age/Sex: 39/M Req #: [id number] Adm Physician: Ordered by: TONY ELIAS MD Report #: [id number] Location: ER Room/Bed: Procedure: [id number] DX/CHEST SINGLE (PORTABLE) Exam Date: 06/10/20 Exam Time: 2029 REPORT STATUS: Signed EXAMINATION: CHEST SINGLE (PORTABLE) INDICATION: Fever and chills. COMPARISON: None FINDINGS: TUBES and LINES: None. LUNGS: Normal lung volumes. Lungs are clear. No consolidations. PLEURA: No pleural effusion or pneumothorax. HEART AND MEDIASTINUM: The cardiomediastinal silhouette is unremarkable. BONES AND SOFT TISSUES: No acute osseous lesion. Soft tissues are unremarkable. UPPER ABDOMEN: No free air under the diaphragm. IMPRESSION: No focal consolidation, pleural effusion or pneumothorax. Signed by: Cynthia Beasley MD on 06/10/2020 8:57 PM Dictated By: CYNTHIA BEASLEY MD 56 Transcribed By: VITALY on 06/10/202056 COPY TO: TONY ELIAS MD Blood leukocytes automated count (number/volume) 2020-05-01 06:38:00 Test Item White Blood Count (test code = 6690-2) 3.52 4.8-10.8 [facility] automated count (number/volume)2020-05-01 06:38:00* Test Item Value Reference Range Interpretation Comments Red Blood Count (test code = 789-8) 2.58 4.3-5.7 [facility] hemoglobin measurement (moles/volume)2020-05-01 06:38:00* Test Item Value Reference Range Interpretation Comments Hemoglobin (test code = 52901-5) 8.8 14.0-18.0 [facility] CenterAutomated blood hematocrit (volume fraction)2020-05-01 06:38:00* Test Item Value Reference Range Interpretation Comments Hematocrit (test code = 4544-3) 26.6 38.2-49.6 [facility] CenterAutomated erythrocyte mean corpuscular lrwmwk9042-40-88 06:38:00* Test Item Value Reference Range Interpretation Comments Mean Corpuscular Volume (test code = 787-2) 103.1 81-99 [facility] CenterAutomated erythrocyte mean corpuscular hemoglobin (mass per erythrocyte)2020-05-01 06:38:00* Test Item Value Reference Range Interpretation Comments Mean Corpuscular Hemoglobin (test code = 785-6) 34.1 28-32 [facility] CenterAutangel medical centered erythrocyte mean corpuscular hemoglobin concentration measurement (mass/volume)2020-05-01 06:38:00* Test Item Value Reference Range Interpretation Comments Mean Corpuscular Hemoglobin Concent (test code = 786-4) 33.1 31-35 [facility] CenterRDW GetCs-[id number] 06:38:00* Test Item Value Reference Range Interpretation Comments Red Cell Distribution Width (test code = 63599-5) 12.2 11.7 -14.4 [facility] CenterAutangel medical centered blood platelet count (count/volume)2020-05-01 06:38:00* Test Item Value Reference Range Interpretation Comments Platelet Count (test code = 777-3) 167 140-360 [facility] CenterAut[facility] centered blood segmented neutrophil count as percentage of total xzrjykbrzb2577-60-03 06:38:00* Test Item Value Reference Range Interpretation Comments Neutrophils (%) (Auto) (test code = 07939-7) 52.8 38.7-80.0 [facility] CenterAutomated blood lymphocyte count as percentage ot total bhsozczhth3286-10-82 06:38:00* Test Item Value Reference Range Interpretation Comments Lymphocytes (%) (Auto) (test code = 736-9) 30.4 18.0-39.1 [facility] CenterAutomated blood monocyte count as percentage of total pnawimftys4031-06-48 06:38:00* Test Item Value Reference Range Interpretation Comments Monocytes (%) (Auto) (test code = 5905-5) 10.8 4.4-11.3 [facility] CenterAutomated blood eosinophil count as percentage of total ngfxdnnrxe8904-48-22 06:38:00* Test Item Value Reference Range Interpretation Comments Eosinophils (%) (Auto) (test code = 713-8) 4.5 0.0-6.0 [facility] CenterAutomated blood basophil count as percentage of total qlpfaotryu7703-00-61 06:38:00* Test Item Value Reference Range Interpretation Comments Basophils (%) (Auto) (test code = 706-2) 0.9 0.0-1.0 [facility] CenterFluoroscopic procedure less than one hour tgmzwfng6006-25-46 06:38:00* Test Item Value Reference Range Interpretation Comments IM GRANULOCYTES % (test code = IM GRANULOCYTES %) 0.6 0.0- 1.0 [facility] CenterAutomated blood neutrophil count 2020-05-01 06:38:00* Test Item Value Reference Range Interpretation Comments Neutrophils # (Auto) (test code = 751-8) 1.9 2.1-6.9 [facility] CenterBlood lymphocytes count (number/volume) 2020-05-01 06:38:00* Test Item Value Reference Range Interpretation Comments Lymphocytes # (Auto) (test code = 56567-3) 1.1 1.0-3.2 [facility] CenterBlood monocytes automated count (number/volume)2020-05-01 06:38:00* Test Item Value Reference Range Interpretation Comments Monocytes # (Auto) (test code = 742-7) 0.4 0.2-0.8 [facility] CenterAutomated blood eosinophil count 2020-05-01 06:38:00* Test Item Value Reference Range Interpretation Comments Eosinophils # (Auto) (test code = 711-2) 0.2 0.0-0.4 [facility] CenterAutomated blood basophil count (count/volume)2020-05-01 06:38:00* Test Item Value Reference Range Interpretation Comments Basophils # (Auto) (test code = 704-7) 0.0 0.0-0.1 [facility] CenterFluoroscopic procedure less than one hour ezyduxgl5252-88-09 06:38:00* Test Item Value Reference Range Interpretation Comments Absolute Immature Granulocyte (auto (misha t code = Absolute Immature Granulocyte (auto) 0.02 0-0.1 [facility] sodium measurement (moles/volume)2020-05-01 06:38:00* Test Item Value Reference Range Interpretation Comments Sodium Level (test code = 2951-2) 138 136-145 [facility]ererum or plasma potassium measurement (moles/volume)2020-05-01 06:38:00* Test Item Value Reference Range Interpretation Comments Potassium Level (test code = 2823-3) 4.3 3.5-5.1 [facility]ererum or plasma chloride measurement (moles/volume)2020-05-01 06:38:00* Test Item Value Reference Range Interpretation Comments Chloride Level (test code = 2075-0) 103 98-107 [facility]ererum or plasma carbon dioxide, total measurement (moles/volume)2020-05-01 06:38:00* Test Item Value Reference Range Interpretation Comments Carbon Dioxide Level (test code = 2028-9) 26 22-29 [facility]ererum or plasma anion jqn8338-59-30 06:38:00* Test Item Value Reference Range Interpretation Comments Anion Gap (test code = 57085-1) 13.3 8-16 [facility]ere[facility] or plasma urea nitrogen measurement (mass/volume)2020-05-01 06:38:00* Test Item Value Reference Range Interpretation Comments Blood Urea Nitrogen (test code = 3094-0) 35 7-26 [facility]ererum or plasma creatinine measurement (mass/volume)2020-05-01 06:38:00* Test Item Value Reference Range Interpretation Comments Creatinine (test code = 2160-0) 1.94 0.72-1.25 [facility]ererum or plasma urea nitrogen/creatinine mass iokvr2935-50-57 06:38:00* Test Item Value Reference Range Interpretation Comments BUN/Creatinine Ratio (test code = 3097-3) 18 6-25 [facility] CenterEstimated glomerular filtration rate (GFR) pnqdqwwclchgc5666-69-08 06:38:00* Test Item Value Reference Range Interpretation Comments Estimat Glomerular Filtration Rate (test code = 504123092) 38 >60 Ranges were taken from the National Kidney Disease Education Program and the [facility] literature.Reference ranges:60 or greater: Plpqee29-33 ( for 3 consecutive months): Chronic kidney disease 15 or less: Kidney failureWhite Rock Medical CenterGlucose gfgmaejzrru5866-32-96 06:38:00* Test Item Value Reference Range Interpretation Comments Glucose Level (test code = PPY9546) 101 74-118 [facility]ere[facility] or plasma calcium measurement (mass/volume)2020-05-01 06:38:00* Test Item Value Reference Range Interpretation Comments Calcium Level (test code = 66722-4) 8.7 8.4-10.2 [facility]ererum or plasma total bilirubin measurement (mass/volume)2020-05-01 06:38:00* Test Item Value Reference Range Interpretation Comments Total Bilirubin (test code = 1975-2) 0.4 0.2-1.2 [facility] CenterFluoroscopic procedure less than one hour nkahyyti6477-17-65 06:38:00* Test Item Value Reference Range Interpretation Comments Aspartate Amino Transf (AST/SGOT) (test code = Aspartate Amino Transf (AST/SGOT)) 167 5-34 [facility] Centererum or plasma alanine aminotransferase measurement (enzymatic activity/volume)2020-05-01 06:38:00* Test Item Value Reference Range Interpretation Comments Alanine Aminotransferase (ALT/SGPT) (test code = 1742-6) 186 0-55 [facility]ererum or plasma protein measurement (mass/volume)2020-05-01 06:38:00* Test Item Value Reference Range Interpretation Comments Total Protein (test code = 2885-2) 6.7 6.5-8.1 [facility]ererum or plasma albumin measurement (mass/volume)2020-05-01 06:38:00* Test Item Value Reference Range Interpretation Comments Albumin (test code = 1751-7) 3.7 3.5-5.0 [facility] CenterPlasma globulin measurement (mass/volume) 2020-05-01 06:38:00* Test Item Value Reference Range Interpretation Comments Globulin (test code = 53335-2) 3.0 2.3-3.5 [facility]ererum or plasma albumin/globulin mass ysexw2347-22-36 06:38:00* Test Item Value Reference Range Interpretation Comments Albumin/Globulin Ratio (test code = 1759-0) 1.2 0.8-2.0 [facility] Centererum or plasma alkaline phosphatase measurement (enzymatic activity/volume)2020-05-01 06:38:00* Test Item Value Reference Range Interpretation Comments Alkaline Phosphatase (test code = 6768-6) 48 40-150 [facility] CenterUS RENAL/LIVER DOPPLER TUN2810-07-25 12:30:00 [place] [address] Patient Name: HYACINTH DRISCOLL MR #: [id number] : 1980 Age/Sex: 39/M Req #: [id number] Adm Physician: CLARA MOROCHO MD Ordered by: GUCCI GROSS MD Report #: [id number] Location: [place] [address] Room/Bed: [facility] [place] Procedure: [id number] US/US DANIEL L/LIVER DOPPLER LTD Exam Date: 04/30/20 Exam Time: 1 008 REPORT STATUS: Signed EXAM: Renal Ultrasound with Dopplers INDICATION: Acute kidney injury Y COMPARISON: 04/29/2020 TECHNIQUE: Transverse and longitudinal images of t he kidneys and bladder were obtained. Color Doppler and waveform spectral annie lysis were obtained of the renal vessels and abdominal aorta. FINDINGS: The technologist reports a technically difficult study due to large matheus unt of bowel gas. Right Kidney: Size: 10 cm in length Echo genicty: Normal Parenchymal thickness: Normal Collecting syste m: No hydronephrosis Stones: None Cyst/Mass: None Left Kidney : Size: 10.4 cm in length cm Echogenicity: Normal Paren chymal thickness: Normal Collecting system: No hydronephrosis Sto cyndi: None Cyst/Mass: None Bladder: Normal Dopplers: Aorta PSV = 60 cm/sec Right Kidney: Main renal artery PSV: Ost ium = not well seen Proximal = not well seen Mid = 24 cm/sec Distal = 70 cm/sec Intrarenal (segmental or interlobar) arteries: Accel eration time: Normal Resistive index: Normal RA PSV/aorta PSV ratio (RAR) = 1.2 Left Kidney: Main renal artery PSV: Ostium = 38 cm/s ec Proximal = 40 cm/sec Mid = 52 cm/sec Distal = 30 cm/sec Intrarenal (segmental or interlobar) arteries: Acceleration time: Normal Resistive index: Normal RA PSV/aorta PSV ratio (RAR) = 0.87 Main Renal Veins: Flow Present IMPRESSION: No gross evidence of hemodynam ically significant renal artery stenosis on this technically limited examinati on. If there is continued clinical concern for renal artery stenosis a more se nsitive evaluation may be obtained with CT and/or conventional angiography. Signed by: Dayana Lea MD on 04/30/2020 12:35 PM Dictated By: DAYANA LEA MD [address] scribed By: VITALY on 04/30/20 1235 COPY TO: GUCCI GROSS MD Serum or plasma magnesium measurement (mass/volume)2020-04-30 05:00:00* Test Item Value Reference Range Interpretation Comments Magnesium Level (test code = 69208-4) 1.6 1.3-2.1 [facility] Centererum or plasma creatine kinase measurement (enzymatic activity/volume)2020-04-30 00:20:00* Test Item Value Reference Range Interpretation Comments Creatine Kinase (test code = 2157-6) 39 30-200 [facility]ererum or plasma creatine kinase MB measurement (mass/volume)2020-04-30 00:20:00* Test Item Value Reference Range Interpretation Comments Creatine Kinase MB (test code = 11206-1) 0.20 0-5.0 [facility] CenterTroponin I measurement by highly sensitive enzyme ieftdjzuwzd9863-12-24 00:20:00* Test Item Value Reference Range Interpretation Comments Troponin I (test code = 76109-1) < 0.001 0-0.300 [facility] CenterUS RENAL RETROPERITONEAL [id number] 16:13:00 [facility] [address] [place] [address] Patient Name: HYACINTH DRISCOLL MR #: [id number] : 1980 Age/Sex: 39/M Req #: [id number] Adm Physician: CLARA MOROCHO MD Ordered by: CLARA MOROCHO MD Report #: [id number] Location: MED/SURG2 Room/Bed: [facility] [place] Procedure: [id number] US/US RENAL RETROPERITONEAL COMP Exam Date: 04/29/20 Exam Time: 1438 REPORT STATUS: Signed EXAM: Renal Ultrasound INDICATION: acute kidneyinjury COMPARISON: N one TECHNIQUE: Transverse and longitudinal images of the kidneys and bladder were obtained. FINDINGS: Right Kidney: Length: 10.3 cm A ppearance: Normal echogenicity. Collecting system: No hydronephrosis Stone s: None Cyst/Mass: None Left Kidney: Length: 10.7 cm Appearance: Nor mal echogenicity. Collecting system: No hydronephrosis Stones: None Cyst /Mass: None Bladder: No mass or calculi. Bilateral ureteral jets visuali zed. Prevoid volume estimate of 13 cc. The prostate is not well visualize d. Incidental note is made of hepatic steatosis. IMPRESSION: No daniel l calculi or hydronephrosis. Signed by: Devi Boles MD on 04/29/2020 4:14 PM Dictated By: DEVI BOLES MD 1614 COPY TO: ANU MOROCHO MD Serum or plasma iron measurement (mass/volume)2020-04-29 09:33:00* Test Item Value Reference Range Interpretation Comments Iron Level (test code = 2498-4) 133 65-175 [facility]ererum or plasma iron binding capacity measurement (mass/volume)2020-04-29 09:33:00* Test Item Value Reference Range Interpretation Comments Total Iron Binding Capacity (test code = 2500-7) 316 261-4 78 [facility] (mass fraction)2020-04-29 09:33:00* Test Item Value Reference Range Interpretation Comments Percent Iron Saturation (test code = 2502-3) 42 15-50 [facility] transferrin [facility] (mass/volume)2020-04-29 09:33:00* Test Item Value Reference Range Interpretation Comments Transferrin (test code = 3034-6) 226 174-364 [facility][U] XRAY HIP UNILATERAL MIN 2 VWS RIGHT [id number] 09:38:00Images acquired, not reported on this accession number. [facility][U] XRAY HIP UNILATERAL MIN 2 VWS RIGHT [id number] 2019-09-16 10:00:00Images acquired, not reported on this accession number. [facility]
[2020-06-10 21:53] VITALS: BP 126/91
== END 2020-06-10 22:00 | disposition home or self-care (01) ==
LOC: ER 19:50
DX: B34.9 Viral infection, unspecified (principal); R19.7 Diarrhea, unspecified; R51 Headache; I10 Essential (primary) hypertension
CPT/HCPCS: 36415; 71045; 80053; 81001; 82150; 83690; 85025; 99283; J7030

== ENCOUNTER 2021-01-04 18:02 | Inpatient (IN) | payer BC ==
[~2021-01-04] VITALS: Ht 177.8 cm; Wt 90.7 kg
[2021-01-04] MEDS ORDERED: ASPIRIN 81 MG CHEW TAB PO ONE (18:30)
[2021-01-04 19:21] LABS: BASOPHILS # (AUTO) 0.1 (0.0-0.1); BASOPHILS % 0.7 % (0.0-1.0); EOSINOPHILS # (AUTO) 0.2 (0.0-0.4); EOSINOPHILS % 1.7 % (0.0-6.0); HEMATOCRIT 35.4 % (38.2-49.6); HEMOGLOBIN 11.6 g/dL (14.0-18.0); LYMPHOCYTES # (AUTO) 1.5 (1.0-3.2); MEAN CORPUSCULAR HGB CONC 32.8 g/dL (31-35); MEAN CORPUSCULAR VOLUME 106.9 fL (81-99); MONOCYTES % 11.2 % (4.4-11.3); NEUTROPHILS % 68.6 % (38.7-80.0); PLATELET COUNT 282 x10e3/uL (140-360); RED BLOOD COUNT 3.31 x10e6/uL (4.3-5.7); RED CELL DISTRIBUTION WIDTH 14.7 % (11.7-14.4)
[2021-01-04] MEDS ORDERED: LORAZEPAM INJ 2 MG/ML VIAL IV ONE (19:30)
[2021-01-04 19:36] LABS: ALANINE AMINOTRANSFERASE 77 IU/L (0-55); ALBUMIN 3.4 g/dL (3.5-5.0); ALBUMIN/GLOBULIN RATIO 0.8 (0.8-2.0); ALKALINE PHOSPHATASE 80 IU/L (40-150); ANION GAP 17.5 mmol/L (8-16); BLOOD UREA NITROGEN 7 mg/dL (7-26); BUN/CREATININE RATIO 9 (6-25); CARBON DIOXIDE 18 mmol/L (22-29); CHLORIDE 103 mmol/L (98-107); CREATINE KINASE 37 IU/L (30-200); CREATININE, SERUM 0.75 mg/dL (0.72-1.25); EST GLOMERULAR FILTRATION RATE > 60 ML/MIN (60-); GLUCOSE 78 mg/dL (74-118); POTASSIUM 4.5 mmol/L (3.5-5.1); SODIUM 134 mmol/L (136-145)
[2021-01-04] MEDS ORDERED: GADOBENATE DIMEGLUMINE 1 ML IV ONE (19:41)
[2021-01-04] MEDS ORDERED: MULTIVITAMINS- 12 INJECTION 10 ML, FOLIC ACID MDV 5 MG, THIAMINE HCL INJ 100 MG in SODI... IV STA (19:55)
[2021-01-04] MEDS: SODIUM CHLORIDE 0.9% 1000ML 1,000 ML IV SCH (23:45)
[2021-01-05] VITALS (9 sets, daily range): BP systolic 102–126; BP diastolic 62–82
[2021-01-05] MEDS ORDERED: MICARDIS40 MG PO (03:28)
[2021-01-05] MEDS ORDERED: LORAZEPAM2 MG/1 M1 PO (03:28)
[2021-01-05 07:13] LABS: BASOPHILS % 0.5 % (0.0-1.0); EOSINOPHILS # (AUTO) 0.1 (0.0-0.4); EOSINOPHILS % 1.7 % (0.0-6.0); HEMATOCRIT 29.1 % (38.2-49.6); HEMOGLOBIN 9.7 g/dL (14.0-18.0); LYMPHOCYTES # (AUTO) 0.9 (1.0-3.2); LYMPHOCYTES % 15.4 % (18.0-39.1); MEAN CORPUSCULAR HEMOGLOBIN 34.9 pg (28-32); MEAN CORPUSCULAR HGB CONC 33.3 g/dL (31-35); MEAN CORPUSCULAR VOLUME 104.7 fL (81-99); MONOCYTES # (AUTO) 0.7 (0.2-0.8); MONOCYTES % 11.1 % (4.4-11.3); NEUTROPHILS # (AUTO) 4.3 (2.1-6.9); PLATELET COUNT 238 x10e3/uL (140-360); RED BLOOD COUNT 2.78 x10e6/uL (4.3-5.7); RED CELL DISTRIBUTION WIDTH 14.5 % (11.7-14.4)
[2021-01-05 07:34] LABS: ALANINE AMINOTRANSFERASE 59 IU/L (0-55); ALBUMIN 2.6 g/dL (3.5-5.0); ALBUMIN/GLOBULIN RATIO 0.8 (0.8-2.0); ALKALINE PHOSPHATASE 63 IU/L (40-150); ANION GAP 14.1 mmol/L (8-16); BLOOD UREA NITROGEN 8 mg/dL (7-26); BUN/CREATININE RATIO 11 (6-25); CALCIUM 8.3 mg/dL (8.4-10.2); CARBON DIOXIDE 20 mmol/L (22-29); CHLORIDE 105 mmol/L (98-107); EST GLOMERULAR FILTRATION RATE > 60 ML/MIN (60-); GLUCOSE 101 mg/dL (74-118); POTASSIUM 4.1 mmol/L (3.5-5.1); SODIUM 135 mmol/L (136-145)
[2021-01-05] MEDS: SODIUM CHLORIDE 0.9% 1000ML 1,000 ML IV SCH ×3 (07:45→21:36)
[2021-01-05 07:55] LABS: INR 1.11
[2021-01-05 07:57] LABS: CREATINE KINASE MB 0.2 ng/mL (0-5.0)
[2021-01-05] MEDS ORDERED: IOPAMIDOL 370 MG/ML 200 ML INFUS..BTL INJ ONE ×2 (08:09→10:34)
[2021-01-05] MEDS ORDERED: SODIUM CHLORIDE 0.9% 50ML 50 ML ONE ×2 (08:09→10:35)
[2021-01-05] MEDS ORDERED: MULTIVITAMINS- 12 INJECTION 10 ML, FOLIC ACID MDV 5 MG, THIAMINE HCL INJ 100 MG in SODI... IV ONE (08:45)
[2021-01-05] MEDS ORDERED: LORAZEPAM INJ 2 MG/ML VIAL IV ONE (14:15)
[2021-01-05 15:46] LABS: CREATINE KINASE MB 0.3 ng/mL (0-5.0)
[2021-01-06] VITALS: BP 101/60
[2021-01-06 04:25] VITALS: BP 99/58
[2021-01-06] MEDS: SODIUM CHLORIDE 0.9% 1000ML 1,000 ML IV SCH ×3 (05:52→23:48)
[2021-01-06 07:03] LABS: FERRITIN 1216.29 ng/mL (21.81-274.66)
[2021-01-06 08:50] VITALS: BP 126/95
[2021-01-06] MEDS: CYANOCOBALAMIN INJ 1,000 MCG/ML VIAL IM SCH (09:35)
[2021-01-06 12:35] VITALS: BP 127/99
[2021-01-06 15:58] LABS: APPEARANCE,CSF CLEAR (CLEAR)
[2021-01-06 15:59] LABS: COLOR,CSF COLORLESS (COLORLESS); TUBE NUMBER 3; WHITE BLOOD CELL,CSF 1 cells/uL (0-5)
[2021-01-06 16:00] LABS: TOTAL PROTEIN,CSF 45.6 mg/dL (15-40)
[2021-01-06 20:37] VITALS: BP 112/94
[2021-01-06 21:03] VITALS: BP 112/94
[2021-01-06] MEDS: LORAZEPAM INJ 2 MG/ML VIAL IV PRN (21:47)
[2021-01-07] VITALS (8 sets, daily range): BP systolic 108–128; BP diastolic 60–93
[2021-01-07 06:26] LABS: BASOPHILS % 0.7 % (0.0-1.0); EOSINOPHILS # (AUTO) 0.1 (0.0-0.4); EOSINOPHILS % 1.9 % (0.0-6.0); HEMATOCRIT 30.4 % (38.2-49.6); LYMPHOCYTES % 17.7 % (18.0-39.1); MEAN CORPUSCULAR HEMOGLOBIN 35.6 pg (28-32); MEAN CORPUSCULAR HGB CONC 32.9 g/dL (31-35); MEAN CORPUSCULAR VOLUME 108.2 fL (81-99); MONOCYTES # (AUTO) 0.5 (0.2-0.8); MONOCYTES % 9.1 % (4.4-11.3); NEUTROPHILS % 70.1 % (38.7-80.0); PLATELET COUNT 240 x10e3/uL (140-360); RED BLOOD COUNT 2.81 x10e6/uL (4.3-5.7); RED CELL DISTRIBUTION WIDTH 14.1 % (11.7-14.4)
[2021-01-07] MEDS: SODIUM CHLORIDE 0.9% 1000ML 1,000 ML IV SCH ×3 (07:12→21:47)
[2021-01-07] MEDS: CYANOCOBALAMIN INJ 1,000 MCG/ML VIAL IM SCH (08:26)
[2021-01-07] MEDS: IMMUNE GLOBULIN IV SCH (12:20)
[2021-01-07] MEDS ORDERED: DIPHENHYDRAMINE HCL INJ 50 MG/ML VIAL IV ONE (12:30)
[2021-01-07] MEDS ORDERED: METHYLPREDNISOLONE SOD SUCC 40 MG/ML VIAL 1ML IV ONE (12:30)
[2021-01-07] MEDS ORDERED: ACETAMINOPHEN 325 MG TAB PO ONE (12:30)
[2021-01-07] MEDS: LORAZEPAM INJ 2 MG/ML VIAL IV PRN (21:47)
[2021-01-08] VITALS (8 sets, daily range): BP systolic 116–137; BP diastolic 86–99
[2021-01-08] MEDS: SODIUM CHLORIDE 0.9% 1000ML 1,000 ML IV SCH ×3 (05:10→20:36)
[2021-01-08] MEDS: CYANOCOBALAMIN INJ 1,000 MCG/ML VIAL IM SCH (08:48)
[2021-01-08] MEDS: CALCIUM CARBONATE 500 MG CHEWABLE TABS PO PRN (14:33)
[2021-01-08] MEDS: LORAZEPAM INJ 2 MG/ML VIAL IV PRN (20:36)
[2021-01-09] VITALS (8 sets, daily range): BP systolic 112–125; BP diastolic 88–96
[2021-01-09 06:14] LABS: BASOPHILS # (AUTO) 0.1 (0.0-0.1); BASOPHILS % 0.8 % (0.0-1.0); EOSINOPHILS # (AUTO) 0.2 (0.0-0.4); EOSINOPHILS % 2.4 % (0.0-6.0); HEMATOCRIT 31.5 % (38.2-49.6); HEMOGLOBIN 10.3 g/dL (14.0-18.0); LYMPHOCYTES # (AUTO) 1.2 (1.0-3.2); LYMPHOCYTES % 19.2 % (18.0-39.1); MEAN CORPUSCULAR HEMOGLOBIN 35.2 pg (28-32); MEAN CORPUSCULAR HGB CONC 32.7 g/dL (31-35); MEAN CORPUSCULAR VOLUME 107.5 fL (81-99); MONOCYTES # (AUTO) 0.6 (0.2-0.8); MONOCYTES % 9.3 % (4.4-11.3); NEUTROPHILS # (AUTO) 4.2 (2.1-6.9); PLATELET COUNT 272 x10e3/uL (140-360); RED BLOOD COUNT 2.93 x10e6/uL (4.3-5.7); RED CELL DISTRIBUTION WIDTH 14.5 % (11.7-14.4)
[2021-01-09 06:40] LABS: ALANINE AMINOTRANSFERASE 80 IU/L (0-55); ALBUMIN 2.6 g/dL (3.5-5.0); ALBUMIN/GLOBULIN RATIO 0.7 (0.8-2.0); ALKALINE PHOSPHATASE 59 IU/L (40-150); ANION GAP 11.9 mmol/L (8-16); BLOOD UREA NITROGEN 8 mg/dL (7-26); BUN/CREATININE RATIO 11 (6-25); CALCIUM 8.2 mg/dL (8.4-10.2); CARBON DIOXIDE 18 mmol/L (22-29); CHLORIDE 110 mmol/L (98-107); CREATININE, SERUM 0.72 mg/dL (0.72-1.25); EST GLOMERULAR FILTRATION RATE > 60 ML/MIN (60-); GLUCOSE 84 mg/dL (74-118); POTASSIUM 3.9 mmol/L (3.5-5.1); SODIUM 136 mmol/L (136-145)
[2021-01-09] MEDS: CYANOCOBALAMIN INJ 1,000 MCG/ML VIAL IM SCH (10:06)
[2021-01-09] MEDS: SODIUM CHLORIDE 0.9% 1000ML 1,000 ML IV SCH ×2 (10:06→15:45)
[2021-01-09] MEDS: CALCIUM CARBONATE 500 MG CHEWABLE TABS PO PRN (10:24)
[2021-01-09] MEDS: ACETAMINOPHEN 325 MG TAB PO SCH (13:44)
[2021-01-09] MEDS: DIPHENHYDRAMINE HCL INJ 50 MG/ML VIAL IV SCH (13:44)
[2021-01-09] MEDS: IMMUNE GLOBULIN IV SCH (13:46)
[2021-01-09 16:10] LABS: IGG/ALB RATIO CSF 0.14 (0.00-0.25)
[2021-01-09 17:31] LABS: CSF/SERUM ALBUMIN INDEX 7 (0-8)
[2021-01-09] MEDS: LORAZEPAM INJ 2 MG/ML VIAL IV PRN (21:15)
[2021-01-10] VITALS (8 sets, daily range): BP systolic 111–126; BP diastolic 78–98
[2021-01-10] MEDS: SODIUM CHLORIDE 0.9% 1000ML 1,000 ML IV SCH ×4 (04:20→23:45)
[2021-01-10] MEDS: CYANOCOBALAMIN INJ 1,000 MCG/ML VIAL IM SCH (09:46)
[2021-01-10] MEDS: PREGABALIN 50 MG CAP PO SCH ×2 (09:46→17:02)
[2021-01-10] MEDS: DIPHENHYDRAMINE HCL INJ 50 MG/ML VIAL IV SCH (13:06)
[2021-01-10] MEDS: ACETAMINOPHEN 325 MG TAB PO SCH (13:06)
[2021-01-10] MEDS: IMMUNE GLOBULIN IV SCH (13:32)
[2021-01-10] MEDS: LORAZEPAM INJ 2 MG/ML VIAL IV PRN (21:14)
[2021-01-10] MEDS: CALCIUM CARBONATE 500 MG CHEWABLE TABS PO PRN (21:47)
[2021-01-11] VITALS (8 sets, daily range): BP systolic 113–131; BP diastolic 74–97
[2021-01-11] MEDS: PREGABALIN 50 MG CAP PO SCH ×2 (08:38→17:09)
[2021-01-11] MEDS: CYANOCOBALAMIN INJ 1,000 MCG/ML VIAL IM SCH (08:38)
[2021-01-11] MEDS: SODIUM CHLORIDE 0.9% 1000ML 1,000 ML IV SCH ×2 (12:02→16:01)
[2021-01-11] MEDS: ACETAMINOPHEN 325 MG TAB PO SCH (12:33)
[2021-01-11] MEDS: DIPHENHYDRAMINE HCL INJ 50 MG/ML VIAL IV SCH (12:33)
[2021-01-11] MEDS: IMMUNE GLOBULIN IV SCH (13:03)
[2021-01-11] MEDS: CALCIUM CARBONATE 500 MG CHEWABLE TABS PO PRN (16:01)
[2021-01-11] MEDS: LORAZEPAM INJ 2 MG/ML VIAL IV PRN (20:51)
[2021-01-12 00:23] VITALS: BP 104/50
[2021-01-12 05:32] VITALS: BP 117/88
[2021-01-12 07:51] VITALS: BP 120/93
[2021-01-12 08:16] VITALS: BP_SYST 120
[2021-01-12] MEDS: CYANOCOBALAMIN INJ 1,000 MCG/ML VIAL IM SCH (10:22)
[2021-01-12] MEDS: PREGABALIN 50 MG CAP PO SCH ×2 (10:22→16:18)
[2021-01-12] MEDS: ACETAMINOPHEN 325 MG TAB PO SCH (11:35)
[2021-01-12] MEDS: DIPHENHYDRAMINE HCL INJ 50 MG/ML VIAL IV SCH (11:36)
[2021-01-12 11:40] VITALS: BP 121/93
[2021-01-12] MEDS: IMMUNE GLOBULIN IV SCH (12:30)
[2021-01-12 16:05] VITALS: BP 121/93
== END 2021-01-12 16:30 | disposition home or self-care (01) | DRG 95 ==
LOC: ER 18:23 → ERHOLD 23:32 → MED/SURG3 01-05 00:56 → OBSVTOIN 01-07 10:44
PROVIDERS: ADMIT Family Medicine; ATTEND Family Medicine
PROC: 009U3ZX Drainage of Spinal Canal, Percutaneous Approach, Diagnostic (ICD-10-PCS; principal; 2021-01-06)
DX: G61.0 Guillain-Barre syndrome (principal); F10.239 Alcohol dependence with withdrawal, unspecified; K62.5 Hemorrhage of anus and rectum; K70.9 Alcoholic liver disease, unspecified; F10.229 Alcohol dependence with intoxication, unspecified; Y90.5 Blood alcohol level of 100-119 mg/100 ml; G62.1 Alcoholic polyneuropathy; I10 Essential (primary) hypertension; Z20.822 Contact with and (suspected) exposure to COVID-19
CPT/HCPCS: 36415; 62328; 70450; 71045; 71250; 72141; 72146; 72158; 74177; 74470; 80053; 80320; 82040; 82550; 82553; 82607; 82728; 82784; 82945; 83540; 83916; 84157; 84207; 84425; 84466; 84484; 85025; 85045; 85610; 85651; 86039; 86140; 86592; 86789; 87070; 87205; 87476; 89051; 93005; 93306; 96360; 99284; G0378; J1200; J2060; J2920; J3411; J3420; J7030; Q9967; U0002

== ENCOUNTER 2021-02-14 20:52 | Inpatient (IN) | payer BC ==
[~2021-02-14] VITALS: Ht 177.8 cm; Wt 87.1 kg
[~2021-02-14 20:52] MED LIST changes: +LORAZEPAM2 MG/1 M1 PO; +MICARDIS40 MG PO
[2021-02-14] MEDS ORDERED: ASPIRIN 81 MG CHEW TAB PO ONE (21:30)
[2021-02-14 21:51] LABS: BASOPHILS # (AUTO) 0.1 (0.0-0.1); BASOPHILS % 0.8 % (0.0-1.0); EOSINOPHILS # (AUTO) 0.3 (0.0-0.4); EOSINOPHILS % 3.6 % (0.0-6.0); HEMATOCRIT 44.1 % (38.2-49.6); HEMOGLOBIN 14.3 g/dL (14.0-18.0); LYMPHOCYTES # (AUTO) 2.7 (1.0-3.2); LYMPHOCYTES % 32.4 % (18.0-39.1); MEAN CORPUSCULAR HEMOGLOBIN 35.9 pg (28-32); MEAN CORPUSCULAR HGB CONC 32.4 g/dL (31-35); MEAN CORPUSCULAR VOLUME 110.8 fL (81-99); MONOCYTES # (AUTO) 0.6 (0.2-0.8); MONOCYTES % 7.3 % (4.4-11.3); NEUTROPHILS # (AUTO) 4.6 (2.1-6.9); NEUTROPHILS % 55.5 % (38.7-80.0); PLATELET COUNT 226 x10e3/uL (140-360); RED BLOOD COUNT 3.98 x10e6/uL (4.3-5.7); RED CELL DISTRIBUTION WIDTH 13.8 % (11.7-14.4)
[2021-02-14 22:00] LABS: INR 0.96; PROTHROMBIN TIME 13.4 seconds (11.9-14.5)
[2021-02-14 22:27] LABS: ALANINE AMINOTRANSFERASE 35 IU/L (0-55); ALBUMIN 3.4 g/dL (3.5-5.0); ALBUMIN/GLOBULIN RATIO 0.9 (0.8-2.0); ALKALINE PHOSPHATASE 67 IU/L (40-150); ANION GAP 16.7 mmol/L (8-16); BLOOD UREA NITROGEN 7 mg/dL (7-26); BUN/CREATININE RATIO 9 (6-25); CALCIUM 8.7 mg/dL (8.4-10.2); CARBON DIOXIDE 18 mmol/L (22-29); CHLORIDE 114 mmol/L (98-107); CREATINE KINASE 48 IU/L (30-200); CREATININE, SERUM 0.77 mg/dL (0.72-1.25); EST GLOMERULAR FILTRATION RATE > 60 ML/MIN (60-); GLUCOSE 105 mg/dL (74-118); POTASSIUM 3.7 mmol/L (3.5-5.1); SODIUM 145 mmol/L (136-145)
[2021-02-14 23:30] VITALS: BP 124/75
[2021-02-15] VITALS (8 sets, daily range): BP systolic 117–156; BP diastolic 69–106
[2021-02-15] MEDS ORDERED: ATIVAN1 MG PO (01:43)
[2021-02-15] MEDS ORDERED: LYRICA50 MG PO (02:54)
[2021-02-15 06:15] LABS: BASOPHILS % 0.7 % (0.0-1.0); EOSINOPHILS # (AUTO) 0.2 (0.0-0.4); EOSINOPHILS % 2.7 % (0.0-6.0); HEMATOCRIT 39.2 % (38.2-49.6); HEMOGLOBIN 12.9 g/dL (14.0-18.0); LYMPHOCYTES # (AUTO) 1.6 (1.0-3.2); LYMPHOCYTES % 28.7 % (18.0-39.1); MEAN CORPUSCULAR HEMOGLOBIN 35.3 pg (28-32); MEAN CORPUSCULAR HGB CONC 32.9 g/dL (31-35); MEAN CORPUSCULAR VOLUME 107.4 fL (81-99); MONOCYTES # (AUTO) 0.5 (0.2-0.8); MONOCYTES % 9.1 % (4.4-11.3); NEUTROPHILS # (AUTO) 3.2 (2.1-6.9); NEUTROPHILS % 58.4 % (38.7-80.0); PLATELET COUNT 184 x10e3/uL (140-360); RED BLOOD COUNT 3.65 x10e6/uL (4.3-5.7); RED CELL DISTRIBUTION WIDTH 13.5 % (11.7-14.4)
[2021-02-15 06:43] LABS: ALANINE AMINOTRANSFERASE 37 IU/L (0-55); ALBUMIN 3.1 g/dL (3.5-5.0); ALBUMIN/GLOBULIN RATIO 0.9 (0.8-2.0); ALKALINE PHOSPHATASE 62 IU/L (40-150); ANION GAP 13.6 mmol/L (8-16); BLOOD UREA NITROGEN 6 mg/dL (7-26); BUN/CREATININE RATIO 8 (6-25); CALCIUM 8.6 mg/dL (8.4-10.2); CARBON DIOXIDE 21 mmol/L (22-29); CHLORIDE 112 mmol/L (98-107); CREATININE, SERUM 0.77 mg/dL (0.72-1.25); EST GLOMERULAR FILTRATION RATE > 60 ML/MIN (60-); GLUCOSE 91 mg/dL (74-118); POTASSIUM 3.6 mmol/L (3.5-5.1); SODIUM 143 mmol/L (136-145)
[2021-02-15 07:32] LABS: CREATINE KINASE MB 0.7 ng/mL (0-5.0)
[2021-02-15 07:41] LABS: POLYCHROMASIA FEW
[2021-02-15 07:42] LABS: PLATELET ESTIMATE ADEQUATE; PLATELET MORPHOLOGY COMMENT NORMAL; RBC MORPHOLOGY COMMENT ABNORMAL
[2021-02-15] MEDS ORDERED: DIPHENHYDRAMINE HCL INJ 50 MG/ML VIAL IV ONE (11:00)
[2021-02-15] MEDS ORDERED: THIAMINE HCL INJ 100 MG/ML 2ML VIAL IV ONE (12:00)
[2021-02-15 13:46] LABS: CREATINE KINASE MB 0.6 ng/mL (0-5.0)
[2021-02-15] MEDS: ACETAMINOPHEN 325 MG TAB PO PRN (14:15)
[2021-02-15] MEDS: DIPHENHYDRAMINE HCL INJ 50 MG/ML VIAL IV SCH (14:30)
[2021-02-15] MEDS: IMMU GLOBULIN,GAMMA (IGG) 600 ML IV SCH (14:47)
[2021-02-15] MEDS ORDERED: LORAZEPAM 1 MG TAB PO PRN (15:45)
[2021-02-15] MEDS: METOPROLOL TARTRATE 25 MG TAB PO SCH (17:21)
[2021-02-15] MEDS: PREGABALIN 50 MG CAP PO SCH (17:22)
[2021-02-16] VITALS (7 sets, daily range): BP systolic 88–139; BP diastolic 56–109
[2021-02-16] MEDS ORDERED: PYRIDOXINE HCL 50 MG TAB PO SCH (09:00)
[2021-02-16] MEDS ORDERED: TELMISARTAN 40 MG TAB PO SCH (09:00)
[2021-02-16] MEDS ORDERED: CYANOCOBALAMIN INJ 1,000 MCG/ML VIAL IM SCH (09:00)
[2021-02-16] MEDS: METOPROLOL TARTRATE 25 MG TAB PO SCH ×2 (09:42→17:17)
[2021-02-16] MEDS: PREGABALIN 50 MG CAP PO SCH ×2 (09:42→17:17)
[2021-02-16] MEDS: DIPHENHYDRAMINE HCL INJ 50 MG/ML VIAL IV SCH (14:10)
[2021-02-16] MEDS: ACETAMINOPHEN 325 MG TAB PO PRN (14:15)
[2021-02-16] MEDS: IMMU GLOBULIN,GAMMA (IGG) 600 ML IV SCH (14:45)
== END 2021-02-16 21:24 | disposition home or self-care (01) | DRG 95 ==
LOC: ER 21:11 → ERHOLD 22:03 → MED/SURG3 23:42
PROVIDERS: ADMIT Family Medicine; ATTEND Family Medicine
DX: G61.0 Guillain-Barre syndrome (principal); G37.9 Demyelinating disease of central nervous system, unspecified; F10.288 Alcohol dependence with other alcohol-induced disorder; G62.1 Alcoholic polyneuropathy; I10 Essential (primary) hypertension; Z20.822 Contact with and (suspected) exposure to COVID-19
CPT/HCPCS: 36415; 80053; 80320; 82550; 82553; 82607; 84207; 84425; 84484; 85025; 85610; 99284; J1200; J1561; J3411; J3420; U0002

== ENCOUNTER 2021-12-22 19:23 | Emergency (ER) | payer BC ==
[~2021-12-22] VITALS: Ht 177.8 cm; Wt 90.7 kg
[~2021-12-22 19:23] MED LIST changes: +ATIVAN1 MG PO; +LYRICA50 MG PO
[2021-12-22] MEDS ORDERED: ONDANSETRON HCL INJ 2MG/ML 2ML 2 MG/ML VIAL IV STA (19:49)
[2021-12-22] MEDS ORDERED: SODIUM CHLORIDE 0.9% 1000ML 1,000 ML ONE (19:56)
[2021-12-22] MEDS ORDERED: ONDANSETRON HCL INJ 2MG/ML 2ML 2 MG/ML VIAL ONE (19:56)
[2021-12-22] MEDS ORDERED: SODIUM CHLORIDE 0.9% 1000ML 1,000 ML IV ONE (20:00)
[2021-12-22] MEDS ORDERED: BENZONATATE200 MG PO (20:39)
[2021-12-22 20:40] VITALS: BP 115/69
== END 2021-12-22 20:40 | disposition home or self-care (01) ==
LOC: FSED 20:01
DX: E86.0 Dehydration (principal); E86.1 Hypovolemia; E87.6 Hypokalemia; F10.10 Alcohol abuse, uncomplicated; R11.2 Nausea with vomiting, unspecified; I10 Essential (primary) hypertension; F41.9 Anxiety disorder, unspecified; R05.9 Cough, unspecified
CPT/HCPCS: 80053; 85025; 96374; 99283; J2405; J7030

== ENCOUNTER 2021-12-29 19:53 | Inpatient (IN) | payer BC ==
[~2021-12-29] VITALS: Ht 177.8 cm; Wt 108.0 kg
[~2021-12-29 19:53] MED LIST changes: +BENZONATATE200 MG PO
[2021-12-29 20:56] LABS: BASOPHILS # (AUTO) 0.1 (0.0-0.1); BASOPHILS % 0.8 % (0.0-1.0); EOSINOPHILS # (AUTO) 0.1 (0.0-0.4); EOSINOPHILS % 0.9 % (0.0-6.0); HEMATOCRIT 24.5 % (38.2-49.6); HEMOGLOBIN 8.4 g/dL (14.0-18.0); LYMPHOCYTES # (AUTO) 1.4 (1.0-3.2); LYMPHOCYTES % 18.4 % (18.0-39.1); MEAN CORPUSCULAR HGB CONC 34.3 g/dL (31-35); MEAN CORPUSCULAR VOLUME 102.1 fL (81-99); MONOCYTES # (AUTO) 0.6 (0.2-0.8); MONOCYTES % 7.3 % (4.4-11.3); NEUTROPHILS # (AUTO) 5.3 (2.1-6.9); NEUTROPHILS % 70.9 % (38.7-80.0); PLATELET COUNT 228 x10e3/uL (140-360); RED CELL DISTRIBUTION WIDTH 17.7 % (11.7-14.4)
[2021-12-29 21:03] LABS: INR 1.24; PARTIAL THROMBOPLASTIN TIME 32.4 seconds (23.8-35.5); PROTHROMBIN TIME 16.4 seconds (11.9-14.5)
[2021-12-29 21:09] LABS: AMYLASE 195 U/L (25-125); LIPASE 764 U/L (8-78)
[2021-12-29 21:12] LABS: ALBUMIN 2.6 g/dL (3.5-5.0); ALBUMIN/GLOBULIN RATIO 0.5 (0.8-2.0); ANION GAP 18.6 mmol/L (8-16); CALCIUM 8.7 mg/dL (8.4-10.2); CREATININE, SERUM 0.94 mg/dL (0.72-1.25); POTASSIUM 3.6 mmol/L (3.5-5.1)
[2021-12-29] MEDS ORDERED: ONDANSETRON HCL INJ 2MG/ML 2ML 2 MG/ML VIAL IV PRN (22:00)
[2021-12-29] MEDS ORDERED: SODIUM CHLORIDE 0.9% 50ML 50 ML ONE (22:21)
[2021-12-29] MEDS ORDERED: IOPAMIDOL 370 MG/ML 200 ML INFUS..BTL INJ ONE (22:21)
[2021-12-29 23:12] LABS: BILIRUBIN,DIRECT 5.8 mg/dL (0.0-0.5)
[2021-12-29 23:13] LABS: % IRON SATURATION 95 % (15-50); IRON 156 ug/dL (65-175); TOTAL IRON BINDING CAPACITY 165 ug/dL (261-478); TRANSFERRIN 118 mg/dL (174-364)
[2021-12-29] MEDS: SODIUM CHLORIDE 0.9% 1000ML 1,000 ML IV SCH (23:21)
[2021-12-29 23:35] LABS: FERRITIN > 2000.00 ng/mL (21.81-274.66)
[2021-12-30] VITALS (8 sets, daily range): BP systolic 95–108; BP diastolic 56–63
[2021-12-30] MEDS ORDERED: MULTIVITAMINS- 12 INJECTION 10 ML, FOLIC ACID MDV 1 MG, THIAMINE HCL INJ 100 MG in SODI... IV ONE (00:30)
[2021-12-30] MEDS: SODIUM CHLORIDE 0.9% 1000ML 1,000 ML IV SCH ×5 (01:30→22:51)
[2021-12-30] MEDS: LORAZEPAM INJ 2 MG/ML VIAL IV PRN (03:32)
[2021-12-30] MEDS: CHLORDIAZEPOXIDE HCL 25 MG CAP PO SCH ×4 (05:32→23:50)
[2021-12-30 07:16] LABS: ALBUMIN 2.2 g/dL (3.5-5.0); ALBUMIN/GLOBULIN RATIO 0.6 (0.8-2.0); ANION GAP 16.2 mmol/L (8-16); CALCIUM 7.8 mg/dL (8.4-10.2); CREATININE, SERUM 0.77 mg/dL (0.72-1.25); POTASSIUM 3.2 mmol/L (3.5-5.1)
[2021-12-30 07:59] LABS: BASOPHILS % 0.7 % (0.0-1.0); EOSINOPHILS # (AUTO) 0.1 (0.0-0.4); EOSINOPHILS % 1.3 % (0.0-6.0); HEMOGLOBIN 7.1 g/dL (14.0-18.0); LYMPHOCYTES % 21.7 % (18.0-39.1); MEAN CORPUSCULAR HEMOGLOBIN 35.3 pg (28-32); MEAN CORPUSCULAR HGB CONC 34.3 g/dL (31-35); MONOCYTES # (AUTO) 0.4 (0.2-0.8); MONOCYTES % 9.6 % (4.4-11.3); PLATELET COUNT 194 x10e3/uL (140-360); RED BLOOD COUNT 2.01 x10e6/uL (4.3-5.7); RED CELL DISTRIBUTION WIDTH 17.8 % (11.7-14.4)
[2021-12-30 08:10] LABS: HEMATOCRIT 20.7 % (38.2-49.6)
[2021-12-30 10:29] LABS: CHOLESTEROL 142 MD/DL (0-199); TRIGLYCERIDES 124 MG/DL (0-149)
[2021-12-30] MEDS ORDERED: MULTIVITAMINS- 12 INJECTION 10 ML, FOLIC ACID MDV 1 MG, THIAMINE HCL INJ 100 MG in SODI... IV SCH ×8 (10:30)
[2021-12-30 10:32] LABS: INR 1.21; PROTHROMBIN TIME 16.1 seconds (11.9-14.5)
[2021-12-30 10:33] LABS: HDL CHOLESTEROL < 5 MG/DL (40-60); LDL CHOLESTEROL 112 MG/DL (60-130)
[2021-12-30] MEDS ORDERED: PHYTONADIONE 10 MG/ML AMP IV ONE ×2 (21:15→22:00)
[2021-12-30] MEDS ORDERED: SODIUM CHLORIDE 0.9% 50ML 50 ML ONE (21:29)
[2021-12-30] MEDS ORDERED: FOLIC ACID 1 MG TAB PO ONE (22:00)
[2021-12-31] VITALS (22 sets, daily range): BP systolic 82–120; BP diastolic 38–71
[2021-12-31] MEDS: LORAZEPAM INJ 2 MG/ML VIAL IV PRN ×3 (00:20→20:07)
[2021-12-31] MEDS: CHLORDIAZEPOXIDE HCL 25 MG CAP PO SCH ×3 (05:40→16:02)
[2021-12-31] MEDS: SODIUM CHLORIDE 0.9% 1000ML 1,000 ML IV SCH ×3 (05:51→17:38)
[2021-12-31 06:50] LABS: ALBUMIN/GLOBULIN RATIO 0.6 (0.8-2.0); ANION GAP 12.4 mmol/L (8-16); CALCIUM 7.3 mg/dL (8.4-10.2); CREATININE, SERUM 0.75 mg/dL (0.72-1.25); POTASSIUM 3.4 mmol/L (3.5-5.1)
[2021-12-31] MEDS: FOLIC ACID 1 MG TAB PO SCH (09:31)
[2021-12-31] MEDS ORDERED: DICYCLOMINE HCL 10 MG CAP PO PRN (15:15)
[2021-12-31] MEDS ORDERED: DILTIAZEM HCL 5 MG/ML 5 ML VIAL IV STA (17:13)
[2021-12-31] MEDS ORDERED: DILTIAZEM HCL 125 ML IV SCH (17:15)
[2021-12-31] MEDS ORDERED: DILTIAZEM HCL VIAL 5 ML ONE (17:27)
[2021-12-31] MEDS ORDERED: DILTIAZEM HCL IV SOLN 125 MG in SODIUM CHLORIDE 0.9% 100 ML IV PRN (17:30)
[2021-12-31 17:32] LABS: BASOPHILS % 0.6 % (0.0-1.0); EOSINOPHILS % 0.3 % (0.0-6.0); HEMATOCRIT 23.1 % (38.2-49.6); HEMOGLOBIN 7.6 g/dL (14.0-18.0); LYMPHOCYTES # (AUTO) 0.6 (1.0-3.2); LYMPHOCYTES % 17.8 % (18.0-39.1); MEAN CORPUSCULAR HGB CONC 32.9 g/dL (31-35); MEAN CORPUSCULAR VOLUME 109.5 fL (81-99); MONOCYTES # (AUTO) 0.2 (0.2-0.8); MONOCYTES % 4.6 % (4.4-11.3); NEUTROPHILS # (AUTO) 2.4 (2.1-6.9); NEUTROPHILS % 72.1 % (38.7-80.0); PLATELET COUNT 256 x10e3/uL (140-360); RED BLOOD COUNT 2.11 x10e6/uL (4.3-5.7); RED CELL DISTRIBUTION WIDTH 19.6 % (11.7-14.4)
[2021-12-31] MEDS: PANTOPRAZOLE SOD 40 MG TABEC PO SCH (18:25)
[2021-12-31] MEDS ORDERED: LORAZEPAM INJ 2 MG/ML VIAL IV PRN (19:30)
[2021-12-31] MEDS ORDERED: CHLORDIAZEPOXIDE HCL 25 MG CAP PO ONE (19:30)
[2021-12-31] MEDS ORDERED: Vancomycin IV 1 GM in SODIUM CHLORIDE 0.9% 250ML 250 ML IV ONE (19:45)
[2021-12-31] MEDS: ACETAMINOPHEN 325 MG TAB PO PRN (20:07)
[2021-12-31] MEDS ORDERED: IBUPROFEN 800MG/ 200ML 800 MG in SODIUM CHLORIDE 0.9% 250ML 250 ML IV PRN (20:15)
[2021-12-31 20:22] LABS: BAND NEUTROPHILS % (MANUAL) 15 %; EOSINOPHILS % (MANUAL) 1 % (0-7); LYMPHOCYTES % (MANUAL) 13 % (19-48); METAMYELOCYTES % (MANUAL) 1 % (0-0); MONOCYTES % (MANUAL) 0 % (3.4-9.0); NEUTROPHILS % (MANUAL) 70 % (40-74); TOXIC GRANULATION SLIGHT
[2021-12-31 20:23] LABS: ANISOCYTOSIS SLIGHT; HYPOCHROMASIA MARKED; PLATELET ESTIMATE ADEQUATE; PLATELET MORPHOLOGY COMMENT NORMAL
[2021-12-31] MEDS: CEFEPIME 1 GM in SODIUM CHLORIDE 0.9% 50ML 50 ML IV SCH (20:47)
[2021-12-31] MEDS: LACTATED RINGER'S 1,000 ML INJ SCH (20:47)
[2021-12-31] MEDS ORDERED: MAGNESIUM SULFATE 2GM/50ML 50 ML IV ONE (21:30)
[2022-01-01] VITALS (47 sets, daily range): BP systolic 48–164; BP diastolic 17–144
[2022-01-01] MEDS: CHLORDIAZEPOXIDE HCL 25 MG CAP PO SCH ×5 (00:13→23:43)
[2022-01-01] MEDS: LORAZEPAM INJ 2 MG/ML VIAL IV PRN ×2 (03:12→22:13)
[2022-01-01 05:50] LABS: BASOPHILS % 0.4 % (0.0-1.0); LYMPHOCYTES # (AUTO) 0.3 (1.0-3.2); LYMPHOCYTES % 3.6 % (18.0-39.1); MEAN CORPUSCULAR HEMOGLOBIN 35.3 pg (28-32); MEAN CORPUSCULAR HGB CONC 32.2 g/dL (31-35); MEAN CORPUSCULAR VOLUME 109.5 fL (81-99); MONOCYTES # (AUTO) 0.5 (0.2-0.8); MONOCYTES % 6.1 % (4.4-11.3); NEUTROPHILS # (AUTO) 6.8 (2.1-6.9); NEUTROPHILS % 89.4 % (38.7-80.0); PLATELET COUNT 177 x10e3/uL (140-360); RED CELL DISTRIBUTION WIDTH 19.1 % (11.7-14.4)
[2022-01-01] MEDS: LACTATED RINGER'S 1,000 ML INJ SCH (05:58)
[2022-01-01 06:20] LABS: ALBUMIN/GLOBULIN RATIO 0.6 (0.8-2.0); ANION GAP 16.6 mmol/L (8-16); CALCIUM 7.5 mg/dL (8.4-10.2); CREATININE, SERUM 1.39 mg/dL (0.72-1.25); POTASSIUM 3.6 mmol/L (3.5-5.1)
[2022-01-01 06:27] LABS: HEMOGLOBIN 6.7 g/dL (14.0-18.0)
[2022-01-01 06:28] LABS: HEMATOCRIT 20.8 % (38.2-49.6)
[2022-01-01] MEDS ORDERED: SODIUM CHLORIDE 0.9% 250ML 250 ML IV ONE ×2 (06:30→17:45)
[2022-01-01 06:36] LABS: AMYLASE 86 U/L (25-125); LIPASE 93 U/L (8-78)
[2022-01-01] MEDS ORDERED: MULTIVITAMINS- 12 INJECTION 10 ML, FOLIC ACID MDV 1 MG, THIAMINE HCL INJ 100 MG in SODI... IV SCH (08:00)
[2022-01-01] MEDS: FOLIC ACID 1 MG TAB PO SCH (08:26)
[2022-01-01] MEDS: PANTOPRAZOLE SOD 40 MG TABEC PO SCH ×2 (08:26→18:07)
[2022-01-01] MEDS: CEFEPIME 1 GM in SODIUM CHLORIDE 0.9% 50ML 50 ML IV SCH (08:26)
[2022-01-01 08:46] LABS: BAND NEUTROPHILS % (MANUAL) 12 %; HYPOCHROMASIA SLIGHT; LYMPHOCYTES % (MANUAL) 4 % (19-48); MONOCYTES % (MANUAL) 9 % (3.4-9.0); NEUTROPHILS % (MANUAL) 75 % (40-74); PLATELET ESTIMATE ADEQUATE; PLATELET MORPHOLOGY COMMENT NORMAL; RBC MORPHOLOGY COMMENT NORMAL
[2022-01-01 08:47] LABS: ANISOCYTOSIS SLIGHT; POLYCHROMASIA FEW
[2022-01-01] MEDS: METOPROLOL TARTRATE 25 MG TAB PO SCH ×2 (09:13→21:26)
[2022-01-01] MEDS ORDERED: DEXTROSE 5% 1,000 ML IV SCH (10:00)
[2022-01-01] MEDS: SODIUM BICARBONATE 8.4% 150 ML in DEXTROSE 5% 1,000 ML IV SCH ×2 (11:43→21:26)
[2022-01-01] MEDS ORDERED: OCTREOTIDE ACETATE 0.1 MG/ML 100MCG AMP IV SCH (14:00)
[2022-01-01] MEDS ORDERED: ALBUMIN 25% 25GM 100ML 100 ML IV ONE (15:00)
[2022-01-01] MEDS ORDERED: ALBUMIN 25% 25GM 100ML 0.25 GM/ML BTL IV ONE ×2 (15:00→21:30)
[2022-01-01] MEDS ORDERED: BENZONATATE 100 MG CAP PO PRN (15:45)
[2022-01-01] MEDS ORDERED: SODIUM CHLORIDE 0.9% 1000ML 1,000 ML ONE (17:31)
[2022-01-01 17:50] LABS: HEMOGLOBIN 6.9 g/dL (14.0-18.0)
[2022-01-01 17:51] LABS: HEMATOCRIT 24.1 % (38.2-49.6)
[2022-01-01] MEDS ORDERED: Vancomycin IV 1 GM in SODIUM CHLORIDE 0.9% 250ML 250 ML IV ONE (18:00)
[2022-01-01 18:07] LABS: BASOPHILS % 0.2 % (0.0-1.0); EOSINOPHILS % 0.1 % (0.0-6.0); LYMPHOCYTES # (AUTO) 0.9 (1.0-3.2); LYMPHOCYTES % 4.7 % (18.0-39.1); MEAN CORPUSCULAR VOLUME 120.5 fL (81-99); MONOCYTES # (AUTO) 1.5 (0.2-0.8); MONOCYTES % 8.2 % (4.4-11.3); NEUTROPHILS # (AUTO) 15.2 (2.1-6.9); NEUTROPHILS % 83.7 % (38.7-80.0); PLATELET COUNT 203 x10e3/uL (140-360); RED CELL DISTRIBUTION WIDTH 19.4 % (11.7-14.4)
[2022-01-01] MEDS: NOREPINEPHRINE 8 MG/D5W 250 ML 250 ML IV SCH (18:07)
[2022-01-01] MEDS ORDERED: SODIUM BICARBONATE 8.4% INJ 50 ML SYR IV ONE ×2 (18:15→20:00)
[2022-01-01] MEDS: MEROPENEM 1 GM in SODIUM CHLORIDE 0.9% 100 ML IV SCH (19:58)
[2022-01-01 20:02] LABS: ALBUMIN 2.5 g/dL (3.5-5.0); ALBUMIN/GLOBULIN RATIO 0.7 (0.8-2.0); ANION GAP 21.1 mmol/L (8-16); CALCIUM 7.5 mg/dL (8.4-10.2); CREATININE, SERUM 1.77 mg/dL (0.72-1.25); POTASSIUM 5.1 mmol/L (3.5-5.1)
[2022-01-01] MEDS ORDERED: ROCURONIUM BROMIDE 2 ML IV ONE (20:06)
[2022-01-01] MEDS ORDERED: MIDAZOLAM HCL 2 MG/2 ML VIAL ONE (20:08)
[2022-01-01 20:19] LABS: ABG HCO3 14 mmol/L (22-26); ABG PCO2 28 mmHg (35-45); ABG PO2 66 mmHg (80-105); ABG TCO2 15
[2022-01-01] MEDS ORDERED: SODIUM BICARBONATE 8.4% 50 ML VIAL IV STA (21:16)
[2022-01-01] MEDS: THIAMINE HCL INJ 100 MG in SODIUM CHLORIDE 0.9% 50ML 50 ML IV SCH (21:26)
[2022-01-01] MEDS ORDERED: PHYTONADIONE 10 MG/ML AMP INJ ONE (21:30)
[2022-01-01] MEDS ORDERED: SODIUM CHLORIDE 0.9% 50ML 50 ML ONE (22:12)
[2022-01-01] MEDS: OCTREOTIDE ACETATE 500 MCG in SODIUM CHLORIDE 0.9% 250ML 249 ML IV SCH (22:12)
[2022-01-01] MEDS ORDERED: ZIPRASIDONE 20 MG VIAL IM STA (22:27)
[2022-01-01] MEDS ORDERED: ZIPRASIDONE 20 MG VIAL IM ONE (22:42)
[2022-01-02] VITALS (65 sets, daily range): BP systolic 45–154; BP diastolic 14–126
[2022-01-02] MEDS: MEROPENEM 1 GM in SODIUM CHLORIDE 0.9% 100 ML IV SCH ×3 (01:55→17:41)
[2022-01-02] MEDS ORDERED: FOLIC ACID 5 MG/ML VIAL IV ONE (02:00)
[2022-01-02] MEDS ORDERED: ALBUMIN 25% 25GM 100ML 0.25 GM/ML BTL IV ONE ×4 (02:00→19:15)
[2022-01-02 05:01] LABS: BASOPHILS # (AUTO) 0.1 (0.0-0.1); BASOPHILS % 0.4 % (0.0-1.0); EOSINOPHILS % 0.1 % (0.0-6.0); HEMATOCRIT 26.4 % (38.2-49.6); LYMPHOCYTES # (AUTO) 0.8 (1.0-3.2); LYMPHOCYTES % 4.8 % (18.0-39.1); MEAN CORPUSCULAR HEMOGLOBIN 33.1 pg (28-32); MEAN CORPUSCULAR HGB CONC 34.1 g/dL (31-35); MEAN CORPUSCULAR VOLUME 97.1 fL (81-99); MONOCYTES # (AUTO) 1.2 (0.2-0.8); MONOCYTES % 7.6 % (4.4-11.3); NEUTROPHILS # (AUTO) 13.2 (2.1-6.9); NEUTROPHILS % 83.7 % (38.7-80.0); PLATELET COUNT 219 x10e3/uL (140-360); RED BLOOD COUNT 2.72 x10e6/uL (4.3-5.7); RED CELL DISTRIBUTION WIDTH 20.7 % (11.7-14.4)
[2022-01-02] MEDS: CHLORDIAZEPOXIDE HCL 25 MG CAP PO SCH ×4 (05:12→23:32)
[2022-01-02] MEDS: METOPROLOL TARTRATE 25 MG TAB PO SCH ×2 (05:12→10:54)
[2022-01-02 05:27] LABS: ANION GAP 19.4 mmol/L (8-16); CALCIUM 7.2 mg/dL (8.4-10.2); CREATININE, SERUM 1.44 mg/dL (0.72-1.25); POTASSIUM 3.4 mmol/L (3.5-5.1)
[2022-01-02 05:47] LABS: THYROID STIMULATING HORMONE 0.3 uIU/mL (0.350-4.940)
[2022-01-02] MEDS ORDERED: DEXMEDETOMIDINE 400MCG/NS100ML 100 ML IV PRN (06:45)
[2022-01-02] MEDS: OCTREOTIDE ACETATE 500 MCG in SODIUM CHLORIDE 0.9% 250ML 249 ML IV SCH ×2 (07:30→19:27)
[2022-01-02] MEDS: SODIUM BICARBONATE 8.4% 150 ML in DEXTROSE 5% 1,000 ML IV SCH ×3 (08:10→23:32)
[2022-01-02] MEDS: FOLIC ACID 1 MG TAB PO SCH (09:00)
[2022-01-02] MEDS: FOLIC ACID MDV 1 MG in SODIUM CHLORIDE 0.9% 50ML 50 ML IV SCH (09:42)
[2022-01-02] MEDS: THIAMINE HCL INJ 100 MG in SODIUM CHLORIDE 0.9% 50ML 50 ML IV SCH (09:54)
[2022-01-02] MEDS ORDERED: ALBUMIN 25% 25GM 100ML 0.25 GM/ML BTL IV NR ×2 (11:00→11:30)
[2022-01-02 11:16] LABS: HEMOGLOBIN 8.2 g/dL (14.0-18.0)
[2022-01-02] MEDS ORDERED: SODIUM BICARBONATE 8.4% INJ 50 ML SYR IV STA (11:45)
[2022-01-02] MEDS: PHENYLEPHRINE 10MG/ML VIAL 40 MG in DEXTROSE 5% 250ML 246 ML IV SCH (12:00)
[2022-01-02] MEDS ORDERED: MIDAZOLAM HCL 2 MG/2 ML VIAL ONE (12:24)
[2022-01-02] MEDS ORDERED: ETOMIDATE 2 MG/ML 10 ML INJ IV ONE (12:24)
[2022-01-02] MEDS ORDERED: ROCURONIUM BROMIDE 1 ML IV ONE (12:34)
[2022-01-02] MEDS: FENTANYL 2000MCG/NS 250 250 ML IV SCH (13:00)
[2022-01-02] MEDS ORDERED: PROPOFOL IV EMULSION 10MG/ML 100 ML IV SCH (13:00)
[2022-01-02] MEDS ORDERED: SODIUM CHLORIDE 0.9% 1000ML 1,000 ML ONE (13:11)
[2022-01-02 13:43] LABS: ABG PCO2 58 mmHg (35-45); ABG PO2 18 mmHg (80-105); ABG TCO2 30
[2022-01-02 13:44] LABS: ABG HCO3 29 mmol/L (22-26)
[2022-01-02] MEDS ORDERED: SODIUM CHLORIDE 0.9% IV ONE (17:30)
[2022-01-02] MEDS ORDERED: GENTAMICIN SULFATE IV ONE (17:30)
[2022-01-02] MEDS ORDERED: ALBUMIN 25% 25GM 100ML 200 ML ONE (18:16)
[2022-01-02] MEDS: NOREPINEPHRINE 8 MG/D5W 250 ML 250 ML IV SCH ×2 (19:05→21:05)
[2022-01-02] MEDS ORDERED: ALBUMIN 25% 25GM 100ML 200 ML IV ONE (19:15)
[2022-01-02] MEDS ORDERED: MIDAZOLAM HCL 2 MG/2 ML VIAL IV STA (21:07)
[2022-01-02] MEDS ORDERED: MIDAZOLAM HCL 5MG/ML 10ML VIAL 100 ML IV PRN (21:15)
[2022-01-03] VITALS (94 sets, daily range): BP systolic 90–128; BP diastolic 25–95
[2022-01-03] MEDS ORDERED: ALBUMIN 25% 25GM 100ML 0.25 GM/ML BTL IV ONE (01:15)
[2022-01-03] MEDS: NOREPINEPHRINE 8 MG/D5W 250 ML 250 ML IV SCH ×7 (01:15→23:15)
[2022-01-03] MEDS: FENTANYL 2000MCG/NS 250 250 ML IV SCH ×2 (01:20→16:19)
[2022-01-03] MEDS: MEROPENEM 1 GM in SODIUM CHLORIDE 0.9% 100 ML IV SCH (01:35)
[2022-01-03] MEDS: OCTREOTIDE ACETATE 500 MCG in SODIUM CHLORIDE 0.9% 250ML 249 ML IV SCH ×4 (01:35→23:30)
[2022-01-03] MEDS: VASOPRESSIN 60 UNIT in DEXTROSE 5% 50ML 57 ML IV PRN ×2 (02:20→15:09)
[2022-01-03] MEDS: CHLORDIAZEPOXIDE HCL 25 MG CAP PO SCH ×3 (05:13→17:06)
[2022-01-03 05:14] LABS: BASOPHILS % 0.3 % (0.0-1.0); EOSINOPHILS # (AUTO) 0.1 (0.0-0.4); EOSINOPHILS % 0.9 % (0.0-6.0); HEMATOCRIT 24.1 % (38.2-49.6); HEMOGLOBIN 8.1 g/dL (14.0-18.0); LYMPHOCYTES # (AUTO) 1.4 (1.0-3.2); MEAN CORPUSCULAR HEMOGLOBIN 32.7 pg (28-32); MEAN CORPUSCULAR HGB CONC 33.6 g/dL (31-35); MEAN CORPUSCULAR VOLUME 97.2 fL (81-99); MONOCYTES % 8.4 % (4.4-11.3); NEUTROPHILS # (AUTO) 9.1 (2.1-6.9); NEUTROPHILS % 77.8 % (38.7-80.0); PLATELET COUNT 133 x10e3/uL (140-360); RED BLOOD COUNT 2.48 x10e6/uL (4.3-5.7); RED CELL DISTRIBUTION WIDTH 20.3 % (11.7-14.4)
[2022-01-03 05:26] LABS: ALBUMIN/GLOBULIN RATIO 1.9 (0.8-2.0); ANION GAP 20.6 mmol/L (8-16); CALCIUM 7.2 mg/dL (8.4-10.2); CREATININE, SERUM 1.04 mg/dL (0.72-1.25)
[2022-01-03 05:28] LABS: POTASSIUM 2.6 mmol/L (3.5-5.1)
[2022-01-03 05:40] LABS: INR 1.46; PROTHROMBIN TIME 18.7 seconds (11.9-14.5)
[2022-01-03 05:41] LABS: PARTIAL THROMBOPLASTIN TIME 38.9 seconds (23.8-35.5)
[2022-01-03] MEDS ORDERED: SODIUM CHLORIDE 0.9% 500ML 500 ML IV ONE (06:30)
[2022-01-03] MEDS ORDERED: POTASSIUM CHLORIDE 20MEQ/100ML 100 ML IV ONE ×2 (06:30)
[2022-01-03] MEDS ORDERED: FUROSEMIDE INJ 10 MG/ML 2 ML VIAL IV ONE (06:30)
[2022-01-03] MEDS: FOLIC ACID 1 MG TAB PO SCH (07:34)
[2022-01-03] MEDS ORDERED: MAGNESIUM SULFATE 2GM/50ML 50 ML IV ONE ×3 (08:45→10:00)
[2022-01-03 09:08] LABS: ABG HCO3 34 mmol/L (22-26); ABG PCO2 38 mmHg (35-45); ABG PH 7.56 (7.35-7.45); ABG PO2 281 mmHg (80-105); ABG TCO2 35
[2022-01-03] MEDS: MEROPENEM 500 MG in SODIUM CHLORIDE 0.9% 50ML 50 ML IV SCH ×2 (09:15→21:40)
[2022-01-03] MEDS: FOLIC ACID MDV 1 MG in SODIUM CHLORIDE 0.9% 50ML 50 ML IV SCH (09:16)
[2022-01-03] MEDS: FUROSEMIDE INJ 100 MG in SODIUM CHLORIDE 0.9% 90 ML IV SCH ×2 (09:36→23:30)
[2022-01-03] MEDS: PHENYLEPHRINE 10MG/ML VIAL 40 MG in DEXTROSE 5% 250ML 246 ML IV SCH (09:51)
[2022-01-03 10:39] LABS: LYMPHOCYTES % (MANUAL) 15 % (19-48); MONOCYTES % (MANUAL) 8 % (3.4-9.0); NEUTROPHILS % (MANUAL) 77 % (40-74); PLATELET ESTIMATE SLIGHTLY DECREASED; PLATELET MORPHOLOGY COMMENT NORMAL
[2022-01-03 16:39] LABS: ANION GAP 17.5 mmol/L (8-16); CREATININE, SERUM 0.84 mg/dL (0.72-1.25)
[2022-01-03 16:41] LABS: CALCIUM 6.6 mg/dL (8.4-10.2); POTASSIUM 2.5 mmol/L (3.5-5.1)
[2022-01-03] MEDS ORDERED: CALCIUM GLUC 1 G/50 ML NACL 100 ML IV ONE (17:00)
[2022-01-03] MEDS ORDERED: POTASSIUM CHLORIDE 20MEQ/100ML 200 ML IV ONE ×2 (17:00→21:00)
[2022-01-03] MEDS ORDERED: SODIUM BICARBONATE 8.4% 150 ML in DEXTROSE 5% 1,000 ML IV SCH (18:45)
[2022-01-04] VITALS (82 sets, daily range): BP systolic 79–122; BP diastolic 39–99
[2022-01-04] MEDS: CHLORDIAZEPOXIDE HCL 25 MG CAP PO SCH ×2 (00:05→06:04)
[2022-01-04] MEDS ORDERED: CALCIUM GLUCONATE 10% INJ 4.65 MEQ in SODIUM CHLORIDE 0.9% 50ML 50 ML IV ONE (00:30)
[2022-01-04] MEDS ORDERED: CALCIUM GLUC 1 G/50 ML NACL 50 ML IV ONE ×2 (00:56→14:30)
[2022-01-04] MEDS: NOREPINEPHRINE 8 MG/D5W 250 ML 250 ML IV SCH ×3 (01:00→02:00)
[2022-01-04] MEDS: OCTREOTIDE ACETATE 500 MCG in SODIUM CHLORIDE 0.9% 250ML 249 ML IV SCH ×3 (02:34→19:35)
[2022-01-04] MEDS: FENTANYL 2000MCG/NS 250 250 ML IV SCH (06:05)
[2022-01-04 06:12] LABS: BASOPHILS # (AUTO) 0.1 (0.0-0.1); BASOPHILS % 0.9 % (0.0-1.0); EOSINOPHILS # (AUTO) 0.1 (0.0-0.4); EOSINOPHILS % 1.6 % (0.0-6.0); HEMATOCRIT 25.5 % (38.2-49.6); HEMOGLOBIN 8.8 g/dL (14.0-18.0); LYMPHOCYTES # (AUTO) 1.1 (1.0-3.2); LYMPHOCYTES % 12.5 % (18.0-39.1); MEAN CORPUSCULAR HEMOGLOBIN 33.3 pg (28-32); MEAN CORPUSCULAR HGB CONC 34.5 g/dL (31-35); MEAN CORPUSCULAR VOLUME 96.6 fL (81-99); MONOCYTES # (AUTO) 0.9 (0.2-0.8); MONOCYTES % 9.6 % (4.4-11.3); NEUTROPHILS # (AUTO) 6.7 (2.1-6.9); NEUTROPHILS % 74.3 % (38.7-80.0); PLATELET COUNT 88 x10e3/uL (140-360); RED BLOOD COUNT 2.64 x10e6/uL (4.3-5.7); RED CELL DISTRIBUTION WIDTH 19.6 % (11.7-14.4)
[2022-01-04 06:43] LABS: ALBUMIN 3.1 g/dL (3.5-5.0); ALBUMIN/GLOBULIN RATIO 1.3 (0.8-2.0); ANION GAP 18.9 mmol/L (8-16); CALCIUM 7.7 mg/dL (8.4-10.2); CREATININE, SERUM 0.85 mg/dL (0.72-1.25)
[2022-01-04 06:48] LABS: POTASSIUM 2.9 mmol/L (3.5-5.1)
[2022-01-04] MEDS ORDERED: MAGNESIUM SULF 1GRAM/DEXTROSE 100 ML IV ONE ×3 (08:00→14:00)
[2022-01-04 08:25] LABS: ABG HCO3 41 mmol/L (22-26); ABG PCO2 31 mmHg (35-45); ABG PH 7.73 (7.35-7.45); ABG PO2 157 mmHg (80-105); ABG TCO2 41
[2022-01-04] MEDS: POTASSIUM CHLORIDE 10MEQ/100ML 100 ML IV SCH ×4 (09:00→10:59)
[2022-01-04] MEDS ORDERED: CALCIUM GLUC 1 G/50 ML NACL 100 ML IV ONE (09:00)
[2022-01-04] MEDS: FOLIC ACID 1 MG TAB PO SCH (09:00)
[2022-01-04] MEDS: MEROPENEM 500 MG in SODIUM CHLORIDE 0.9% 50ML 50 ML IV SCH (09:09)
[2022-01-04] MEDS: ACETAZOLAMIDE SODIUM 500 MG/VIAL IV SCH ×2 (09:09→20:22)
[2022-01-04] MEDS: FOLIC ACID MDV 1 MG in SODIUM CHLORIDE 0.9% 50ML 50 ML IV SCH (09:09)
[2022-01-04] MEDS: PHENYLEPHRINE 10MG/ML VIAL 40 MG in DEXTROSE 5% 250ML 246 ML IV SCH (09:20)
[2022-01-04 09:39] LABS: EOSINOPHILS % (MANUAL) 2 % (0-7); LYMPHOCYTES % (MANUAL) 13 % (19-48); MONOCYTES % (MANUAL) 5 % (3.4-9.0); NEUTROPHILS % (MANUAL) 80 % (40-74)
[2022-01-04 09:40] LABS: PLATELET ESTIMATE MODERATELY DECREASED; PLATELET MORPHOLOGY COMMENT NORMAL; RBC MORPHOLOGY COMMENT NORMAL
[2022-01-04] MEDS: MAGNESIUM SULFATE 2GM/50ML 50 ML IV SCH ×2 (11:00→12:00)
[2022-01-04] MEDS: CEFTRIAXONE 2 GM in SODIUM CHLORIDE 0.9% 100 ML IV SCH (11:37)
[2022-01-04 13:47] LABS: ANION GAP 15.9 mmol/L (8-16); CALCIUM 8.1 mg/dL (8.4-10.2); CREATININE, SERUM 0.83 mg/dL (0.72-1.25)
[2022-01-04 13:55] LABS: POTASSIUM 2.9 mmol/L (3.5-5.1)
[2022-01-04] MEDS ORDERED: POTASSIUM CHLORIDE 20MEQ/100ML 200 ML IV ONE (14:00)
[2022-01-04] MEDS: FUROSEMIDE INJ 100 MG in SODIUM CHLORIDE 0.9% 90 ML IV SCH ×2 (14:52→23:33)
[2022-01-04 16:49] LABS: ABG HCO3 41 mmol/L (22-26); ABG PCO2 52 mmHg (35-45); ABG PO2 117 mmHg (80-105); ABG TCO2 42
[2022-01-04] MEDS: LORAZEPAM INJ 2 MG/ML VIAL IV PRN (19:55)
[2022-01-05] VITALS (57 sets, daily range): BP systolic 86–109; BP diastolic 38–82
[2022-01-05] MEDS: OCTREOTIDE ACETATE 500 MCG in SODIUM CHLORIDE 0.9% 250ML 249 ML IV SCH ×3 (04:50→20:40)
[2022-01-05 06:31] LABS: BASOPHILS % 0.6 % (0.0-1.0); EOSINOPHILS # (AUTO) 0.1 (0.0-0.4); HEMATOCRIT 26.5 % (38.2-49.6); HEMOGLOBIN 8.5 g/dL (14.0-18.0); LYMPHOCYTES % 13.6 % (18.0-39.1); MEAN CORPUSCULAR HEMOGLOBIN 33.5 pg (28-32); MEAN CORPUSCULAR HGB CONC 32.1 g/dL (31-35); MEAN CORPUSCULAR VOLUME 104.3 fL (81-99); MONOCYTES # (AUTO) 0.6 (0.2-0.8); MONOCYTES % 8.6 % (4.4-11.3); NEUTROPHILS # (AUTO) 5.1 (2.1-6.9); NEUTROPHILS % 73.6 % (38.7-80.0); PLATELET COUNT 68 x10e3/uL (140-360); RED BLOOD COUNT 2.54 x10e6/uL (4.3-5.7); RED CELL DISTRIBUTION WIDTH 19.8 % (11.7-14.4)
[2022-01-05 06:44] LABS: ALBUMIN 2.5 g/dL (3.5-5.0); ALBUMIN/GLOBULIN RATIO 1.1 (0.8-2.0); ANION GAP 14.9 mmol/L (8-16); CALCIUM 7.5 mg/dL (8.4-10.2); CREATININE, SERUM 1.26 mg/dL (0.72-1.25); MAGNESIUM 1.5 MG/DL (1.3-2.1)
[2022-01-05 06:46] LABS: POTASSIUM 2.9 mmol/L (3.5-5.1)
[2022-01-05] MEDS: FOLIC ACID 1 MG TAB PO SCH (07:58)
[2022-01-05] MEDS: ACETAZOLAMIDE SODIUM 500 MG/VIAL IV SCH ×2 (07:58→20:40)
[2022-01-05] MEDS: CEFTRIAXONE 2 GM in SODIUM CHLORIDE 0.9% 100 ML IV SCH (07:58)
[2022-01-05] MEDS: FOLIC ACID MDV 1 MG in SODIUM CHLORIDE 0.9% 50ML 50 ML IV SCH (07:58)
[2022-01-05] MEDS ORDERED: POTASSIUM CHLORIDE 20MEQ/100ML 200 ML IV ONE ×3 (08:00→21:00)
[2022-01-05 08:30] LABS: BAND NEUTROPHILS % (MANUAL) 2 %; EOSINOPHILS % (MANUAL) 6 % (0-7); LYMPHOCYTES % (MANUAL) 14 % (19-48); MONOCYTES % (MANUAL) 5 % (3.4-9.0); NEUTROPHILS % (MANUAL) 73 % (40-74); PLATELET ESTIMATE MODERATELY DECREASED; PLATELET MORPHOLOGY COMMENT NORMAL; RBC MORPHOLOGY COMMENT NORMAL
[2022-01-05] MEDS: NOREPINEPHRINE 8 MG/D5W 250 ML 250 ML IV SCH (09:03)
[2022-01-05 09:26] LABS: ABG PCO2 63 mmHg (35-45); ABG PH 7.38 (7.35-7.45); ABG PO2 50 mmHg (80-105)
[2022-01-05 09:27] LABS: ABG HCO3 38 mmol/L (22-26); ABG TCO2 39
[2022-01-05] MEDS: MAGNESIUM SULFATE 2GM/50ML 50 ML IV SCH ×2 (10:36→12:00)
[2022-01-05] MEDS: PHENYLEPHRINE 10MG/ML VIAL 40 MG in DEXTROSE 5% 250ML 246 ML IV SCH (11:24)
[2022-01-05] MEDS: MIDODRINE HCL 5 MG TABLET PO SCH ×2 (12:00→16:23)
[2022-01-05] MEDS ORDERED: CALCIUM GLUC 1 G/50 ML NACL 50 ML IV ONE (14:30)
[2022-01-05] MEDS ORDERED: SODIUM PHOSPHATE IN 0.9 % NACL 15 MMOL in SODIUM CHLORIDE 0.9% 250ML 250 ML IV ONE ×2 (16:00)
[2022-01-05 17:37] LABS: ALBUMIN 2.3 g/dL (3.5-5.0); ANION GAP 14.1 mmol/L (8-16); CALCIUM 7.5 mg/dL (8.4-10.2); CREATININE, SERUM 1.1 mg/dL (0.72-1.25); MAGNESIUM 2.1 MG/DL (1.3-2.1); POTASSIUM 3.1 mmol/L (3.5-5.1)
[2022-01-05] MEDS ORDERED: ALBUMIN 25% 25GM 100ML 0.25 GM/ML BTL IV ONE ×2 (17:45→22:45)
[2022-01-05] MEDS ORDERED: ALBUMIN 25% 25GM 100ML 100 ML IV ONE (18:00)
[2022-01-06] VITALS (68 sets, daily range): BP systolic 95–112; BP diastolic 37–65
[2022-01-06 05:45] LABS: BASOPHILS # (AUTO) 0.1 (0.0-0.1); BASOPHILS % 0.6 % (0.0-1.0); EOSINOPHILS # (AUTO) 0.2 (0.0-0.4); EOSINOPHILS % 1.7 % (0.0-6.0); HEMATOCRIT 26.2 % (38.2-49.6); HEMOGLOBIN 8.5 g/dL (14.0-18.0); LYMPHOCYTES # (AUTO) 1.3 (1.0-3.2); LYMPHOCYTES % 12.1 % (18.0-39.1); MEAN CORPUSCULAR HEMOGLOBIN 33.7 pg (28-32); MEAN CORPUSCULAR HGB CONC 32.4 g/dL (31-35); MONOCYTES % 9.2 % (4.4-11.3); NEUTROPHILS # (AUTO) 7.9 (2.1-6.9); NEUTROPHILS % 74.2 % (38.7-80.0); PLATELET COUNT 77 x10e3/uL (140-360); RED BLOOD COUNT 2.52 x10e6/uL (4.3-5.7)
[2022-01-06 06:21] LABS: INR 1.46
[2022-01-06 06:22] LABS: PHOSPHORUS 1.5 MG/DL (2.3-4.7)
[2022-01-06 06:44] LABS: ALBUMIN 2.6 g/dL (3.5-5.0); ANION GAP 17.1 mmol/L (8-16); CALCIUM 7.7 mg/dL (8.4-10.2); CREATININE, SERUM 1.2 mg/dL (0.72-1.25); POTASSIUM 3.1 mmol/L (3.5-5.1)
[2022-01-06] MEDS ORDERED: POTASSIUM PHOSPHATE 9 MM in SODIUM CHLORIDE 0.9% 250ML 250 ML IV ONE (09:00)
[2022-01-06] MEDS: MIDODRINE HCL 5 MG TABLET PO SCH ×3 (09:21→17:48)
[2022-01-06] MEDS: ACETAZOLAMIDE SODIUM 500 MG/VIAL IV SCH ×2 (09:21→20:57)
[2022-01-06] MEDS: FOLIC ACID MDV 1 MG in SODIUM CHLORIDE 0.9% 50ML 50 ML IV SCH (09:21)
[2022-01-06] MEDS: CEFTRIAXONE 2 GM in SODIUM CHLORIDE 0.9% 100 ML IV SCH (09:21)
[2022-01-06] MEDS: SPIRONOLACTONE 25 MG TAB PO SCH (10:16)
[2022-01-06 11:03] LABS: BAND NEUTROPHILS % (MANUAL) 1 %; LYMPHOCYTES % (MANUAL) 20 % (19-48); MONOCYTES % (MANUAL) 6 % (3.4-9.0); NEUTROPHILS % (MANUAL) 73 % (40-74); PLATELET ESTIMATE MODERATELY DECREASED
[2022-01-06 11:04] LABS: PLATELET MORPHOLOGY COMMENT NORMAL; RBC MORPHOLOGY COMMENT NORMAL
[2022-01-06] MEDS ORDERED: CALCIUM GLUC 1 G/50 ML NACL 50 ML IV ONE (11:30)
[2022-01-06] MEDS: PHENYLEPHRINE 10MG/ML VIAL 40 MG in DEXTROSE 5% 250ML 246 ML IV SCH (11:40)
[2022-01-06] MEDS ORDERED: FUROSEMIDE INJ 10 MG/ML 2 ML VIAL IV ONE (11:45)
[2022-01-06 12:50] LABS: ABG PH 7.31 (7.35-7.45)
[2022-01-06 12:51] LABS: ABG PCO2 72 mmHg (35-45)
[2022-01-06 12:52] LABS: ABG HCO3 36 mmol/L (22-26); ABG PO2 89 mmHg (80-105); ABG TCO2 38
[2022-01-06] MEDS: NOREPINEPHRINE 8 MG/D5W 250 ML 250 ML IV SCH (15:00)
[2022-01-07] VITALS (88 sets, daily range): BP systolic 74–133; BP diastolic 38–82
[2022-01-07] MEDS: NOREPINEPHRINE 8 MG/D5W 250 ML 250 ML IV SCH ×3 (05:55→23:15)
[2022-01-07 06:28] LABS: BASOPHILS # (AUTO) 0.1 (0.0-0.1); BASOPHILS % 0.6 % (0.0-1.0); EOSINOPHILS # (AUTO) 0.1 (0.0-0.4); HEMATOCRIT 27.4 % (38.2-49.6); HEMOGLOBIN 8.8 g/dL (14.0-18.0); LYMPHOCYTES # (AUTO) 1.8 (1.0-3.2); LYMPHOCYTES % 13.1 % (18.0-39.1); MEAN CORPUSCULAR HEMOGLOBIN 33.8 pg (28-32); MEAN CORPUSCULAR HGB CONC 32.1 g/dL (31-35); MEAN CORPUSCULAR VOLUME 105.4 fL (81-99); MONOCYTES # (AUTO) 1.3 (0.2-0.8); MONOCYTES % 9.5 % (4.4-11.3); NEUTROPHILS # (AUTO) 10.2 (2.1-6.9); NEUTROPHILS % 73.2 % (38.7-80.0); PLATELET COUNT 103 x10e3/uL (140-360); RED CELL DISTRIBUTION WIDTH 20.5 % (11.7-14.4)
[2022-01-07 06:46] LABS: ALBUMIN 2.4 g/dL (3.5-5.0); ALBUMIN/GLOBULIN RATIO 0.9 (0.8-2.0); ANION GAP 12.2 mmol/L (8-16); CALCIUM 7.3 mg/dL (8.4-10.2); CREATININE, SERUM 1.24 mg/dL (0.72-1.25); POTASSIUM 3.2 mmol/L (3.5-5.1)
[2022-01-07 07:02] LABS: MAGNESIUM 1.9 MG/DL (1.3-2.1); PHOSPHORUS 1.4 MG/DL (2.3-4.7)
[2022-01-07] MEDS: CEFTRIAXONE 2 GM in SODIUM CHLORIDE 0.9% 100 ML IV SCH (09:00)
[2022-01-07] MEDS ORDERED: POTASSIUM CHLORIDE 20MEQ/100ML 100 ML IV ONE (09:00)
[2022-01-07] MEDS: ACETAZOLAMIDE SODIUM 500 MG/VIAL IV SCH ×2 (09:00→20:48)
[2022-01-07] MEDS: SPIRONOLACTONE 25 MG TAB PO SCH (09:00)
[2022-01-07] MEDS ORDERED: SODIUM CHLORIDE 0.9% 50ML 50 ML ONE (09:24)
[2022-01-07] MEDS: LACTULOSE SYRUP 20 GM/30 ML UDC PO SCH ×2 (09:45→16:37)
[2022-01-07] MEDS: MIDODRINE HCL 5 MG TABLET PO SCH ×3 (10:00→16:00)
[2022-01-07 10:30] LABS: ABG HCO3 36 mmol/L (22-26); ABG PCO2 64 mmHg (35-45); ABG PH 7.36 (7.35-7.45); ABG PO2 82 mmHg (80-105); ABG TCO2 38
[2022-01-07] MEDS: FOLIC ACID MDV 1 MG in SODIUM CHLORIDE 0.9% 50ML 50 ML IV SCH (10:51)
[2022-01-07] MEDS ORDERED: POTASSIUM CHLORIDE 10MEQ/100ML 200 ML IV ONE (12:00)
[2022-01-07] MEDS ORDERED: KCL 20 MEQ PACKET/ ORAL SOLN NG ONE (12:30)
[2022-01-07] MEDS ORDERED: FUROSEMIDE INJ 10 MG/ML 2 ML VIAL IV ONE (16:00)
[2022-01-07] MEDS: DEXMEDETOMIDINE 400MCG/NS100ML 100 ML IV PRN ×2 (19:00→19:28)
[2022-01-08] VITALS (84 sets, daily range): BP systolic 81–153; BP diastolic 40–68
[2022-01-08] MEDS: DEXMEDETOMIDINE 400MCG/NS100ML 100 ML IV PRN ×3 (01:00→23:29)
[2022-01-08 05:51] LABS: BASOPHILS # (AUTO) 0.1 (0.0-0.1); BASOPHILS % 0.5 % (0.0-1.0); EOSINOPHILS # (AUTO) 0.2 (0.0-0.4); EOSINOPHILS % 0.6 % (0.0-6.0); HEMOGLOBIN 9.2 g/dL (14.0-18.0); LYMPHOCYTES # (AUTO) 1.5 (1.0-3.2); MEAN CORPUSCULAR HEMOGLOBIN 33.9 pg (28-32); MEAN CORPUSCULAR HGB CONC 32.9 g/dL (31-35); MEAN CORPUSCULAR VOLUME 103.3 fL (81-99); NEUTROPHILS # (AUTO) 21.3 (2.1-6.9); NEUTROPHILS % 83.7 % (38.7-80.0); PLATELET COUNT 123 x10e3/uL (140-360); RED BLOOD COUNT 2.71 x10e6/uL (4.3-5.7); RED CELL DISTRIBUTION WIDTH 21.5 % (11.7-14.4)
[2022-01-08 06:22] LABS: ALBUMIN 2.3 g/dL (3.5-5.0); ALBUMIN/GLOBULIN RATIO 0.8 (0.8-2.0); ANION GAP 23.2 mmol/L (8-16); CALCIUM 8.2 mg/dL (8.4-10.2); CREATININE, SERUM 2.06 mg/dL (0.72-1.25); POTASSIUM 4.2 mmol/L (3.5-5.1)
[2022-01-08 07:20] LABS: BAND NEUTROPHILS % (MANUAL) 3 %; LYMPHOCYTES % (MANUAL) 5 % (19-48); MONOCYTES % (MANUAL) 3 % (3.4-9.0); NEUTROPHILS % (MANUAL) 89 % (40-74)
[2022-01-08 07:21] LABS: PLATELET ESTIMATE SLIGHTLY DECREASED
[2022-01-08 07:22] LABS: PLATELET MORPHOLOGY COMMENT NORMAL; RBC MORPHOLOGY COMMENT NORMAL
[2022-01-08] MEDS: ACETAZOLAMIDE SODIUM 500 MG/VIAL IV SCH (09:00)
[2022-01-08] MEDS ORDERED: HEPARIN 25,000 UNIT 1,500 UNIT in DEXTROSE 5% 250ML 250 ML IV SCH (09:00)
[2022-01-08 09:29] LABS: ABG PH 7.38 (7.35-7.45)
[2022-01-08 09:30] LABS: ABG HCO3 26 mmol/L (22-26); ABG PCO2 44 mmHg (35-45); ABG PO2 85 mmHg (80-105); ABG TCO2 27
[2022-01-08] MEDS: NOREPINEPHRINE 8 MG/D5W 250 ML 250 ML IV SCH ×2 (09:30→23:28)
[2022-01-08] MEDS ORDERED: ALBUMIN 25% 25GM 100ML 0.25 GM/ML BTL IV SCH (09:30)
[2022-01-08] MEDS ORDERED: SODIUM CHLORIDE 0.9% 100 ML ONE (09:49)
[2022-01-08] MEDS: SPIRONOLACTONE 25 MG TAB PO SCH (10:03)
[2022-01-08] MEDS: MIDODRINE HCL 5 MG TABLET PO SCH ×3 (10:03→16:43)
[2022-01-08] MEDS: FOLIC ACID MDV 1 MG in SODIUM CHLORIDE 0.9% 50ML 50 ML IV SCH (10:03)
[2022-01-08] MEDS: HEPARIN 25,000 UNIT 1,500 UNIT in DEXTROSE 5% 250ML 250 ML IV SCH ×2 (11:25→18:13)
[2022-01-08] MEDS: VANCOMYCIN 250MG/5ML ORAL SOLN PO SCH ×3 (11:51→21:59)
[2022-01-08] MEDS: ALBUMIN 25% 25GM 100ML 100 ML IV SCH ×2 (11:51→16:43)
[2022-01-08] MEDS: CEFTRIAXONE 2 GM in SODIUM CHLORIDE 0.9% 100 ML IV SCH (11:51)
[2022-01-08] MEDS ORDERED: DIATRIZOATE MEGL/DIATRIZOA SOD 30 ML BTL PO ONE (12:12)
[2022-01-08 14:21] LABS: CLARITY,URINE SL CLOUDY (CLEAR); COLOR,URINE AMBER (YELLOW); KETONES,URINE TRACE (NEGATIVE); LEUKOCYTE ESTERASE ,URINE NEGATIVE (NEGATIVE); NITRITE,URINE NEGATIVE (NEGATIVE); PROTEIN,URINE DIPSTICK 2+ (NEGATIVE); URINE UROBILINOGEN 0.2 mg/dL (0.2 - 1)
[2022-01-08 14:28] LABS: AMORPHOUS SEDIMENT,URINE MANY (FEW); BACTERIA,URINE MODERATE /HPF; EPITHELIAL CELLS,URINE FEW /LPF; RENAL EPITHELIAL CELLS,URINE RARE
[2022-01-08] MEDS ORDERED: CALCIUM GLUC 1 G/50 ML NACL 50 ML IV ONE (15:45)
[2022-01-08 18:26] LABS: INR 2.05; PROTHROMBIN TIME 24.7 seconds (11.9-14.5)
[2022-01-09] VITALS (96 sets, daily range): BP systolic 87–133; BP diastolic 39–107
[2022-01-09] MEDS: VANCOMYCIN 250MG/5ML ORAL SOLN PO SCH ×4 (04:30→22:40)
[2022-01-09] MEDS: HEPARIN 25,000 UNIT 1,500 UNIT in DEXTROSE 5% 250ML 250 ML IV SCH (04:32)
[2022-01-09] MEDS ORDERED: HEPARIN 25,000 UNIT DRIP IV ONE (04:40)
[2022-01-09 07:15] LABS: BASOPHILS # (AUTO) 0.1 (0.0-0.1); BASOPHILS % 0.4 % (0.0-1.0); EOSINOPHILS # (AUTO) 0.1 (0.0-0.4); EOSINOPHILS % 0.7 % (0.0-6.0); HEMATOCRIT 23.9 % (38.2-49.6); LYMPHOCYTES # (AUTO) 1.4 (1.0-3.2); LYMPHOCYTES % 7.8 % (18.0-39.1); MEAN CORPUSCULAR HEMOGLOBIN 33.8 pg (28-32); MEAN CORPUSCULAR HGB CONC 33.5 g/dL (31-35); MEAN CORPUSCULAR VOLUME 100.8 fL (81-99); MONOCYTES # (AUTO) 1.5 (0.2-0.8); MONOCYTES % 8.8 % (4.4-11.3); NEUTROPHILS % 80.4 % (38.7-80.0); PLATELET COUNT 115 x10e3/uL (140-360); RED BLOOD COUNT 2.37 x10e6/uL (4.3-5.7); RED CELL DISTRIBUTION WIDTH 21.2 % (11.7-14.4)
[2022-01-09] MEDS: DEXMEDETOMIDINE 400MCG/NS100ML 100 ML IV PRN ×3 (07:23→22:30)
[2022-01-09 07:31] LABS: ALBUMIN 2.9 g/dL (3.5-5.0); ALBUMIN/GLOBULIN RATIO 1.2 (0.8-2.0); ANION GAP 14.4 mmol/L (8-16); CALCIUM 8.3 mg/dL (8.4-10.2); CREATININE, SERUM 2.09 mg/dL (0.72-1.25); POTASSIUM 3.4 mmol/L (3.5-5.1)
[2022-01-09] MEDS ORDERED: SODIUM CHLORIDE 0.9% 50ML 0 ML ONE (08:10)
[2022-01-09 08:47] LABS: BAND NEUTROPHILS % (MANUAL) 1 %; EOSINOPHILS % (MANUAL) 1 % (0-7); LYMPHOCYTES % (MANUAL) 4 % (19-48); MONOCYTES % (MANUAL) 5 % (3.4-9.0); NEUTROPHILS % (MANUAL) 89 % (40-74); PLATELET ESTIMATE SLIGHTLY DECREASED
[2022-01-09 08:48] LABS: PLATELET MORPHOLOGY COMMENT NORMAL; RBC MORPHOLOGY COMMENT NORMAL
[2022-01-09] MEDS: MIDODRINE HCL 5 MG TABLET PO SCH ×3 (08:55→17:01)
[2022-01-09] MEDS: CEFTRIAXONE 2 GM in SODIUM CHLORIDE 0.9% 100 ML IV SCH (08:56)
[2022-01-09] MEDS: SPIRONOLACTONE 25 MG TAB PO SCH (08:56)
[2022-01-09] MEDS: FOLIC ACID MDV 1 MG in SODIUM CHLORIDE 0.9% 50ML 50 ML IV SCH (09:11)
[2022-01-09] MEDS: NOREPINEPHRINE 8 MG/D5W 250 ML 250 ML IV SCH ×3 (09:13→22:30)
[2022-01-09] MEDS ORDERED: POTASSIUM CHLORIDE 10MEQ/100ML 200 ML IV ONE (15:15)
[2022-01-09] MEDS ORDERED: FUROSEMIDE INJ 10 MG/ML 2 ML VIAL IV ONE (16:00)
[2022-01-10] VITALS (91 sets, daily range): BP systolic 78–131; BP diastolic 33–101
[2022-01-10] MEDS: DEXMEDETOMIDINE 400MCG/NS100ML 100 ML IV PRN ×5 (00:30→20:48)
[2022-01-10] MEDS: HEPARIN 25,000 UNIT 1,500 UNIT in DEXTROSE 5% 250ML 250 ML IV SCH (01:22)
[2022-01-10] MEDS: VANCOMYCIN 250MG/5ML ORAL SOLN PO SCH ×4 (05:57→21:00)
[2022-01-10 06:08] LABS: BASOPHILS # (AUTO) 0.1 (0.0-0.1); BASOPHILS % 0.4 % (0.0-1.0); EOSINOPHILS # (AUTO) 0.1 (0.0-0.4); EOSINOPHILS % 0.7 % (0.0-6.0); HEMATOCRIT 26.7 % (38.2-49.6); HEMOGLOBIN 9.1 g/dL (14.0-18.0); LYMPHOCYTES # (AUTO) 2.4 (1.0-3.2); LYMPHOCYTES % 13.4 % (18.0-39.1); MEAN CORPUSCULAR HEMOGLOBIN 34.1 pg (28-32); MEAN CORPUSCULAR HGB CONC 34.1 g/dL (31-35); MONOCYTES # (AUTO) 1.5 (0.2-0.8); MONOCYTES % 8.5 % (4.4-11.3); NEUTROPHILS % 72.5 % (38.7-80.0); PLATELET COUNT 156 x10e3/uL (140-360); RED BLOOD COUNT 2.67 x10e6/uL (4.3-5.7); RED CELL DISTRIBUTION WIDTH 21.6 % (11.7-14.4)
[2022-01-10 06:34] LABS: ALBUMIN 2.7 g/dL (3.5-5.0); CALCIUM 8.8 mg/dL (8.4-10.2); CREATININE, SERUM 1.94 mg/dL (0.72-1.25)
[2022-01-10] MEDS: MIDODRINE HCL 5 MG TABLET PO SCH ×4 (06:45→16:35)
[2022-01-10 06:53] LABS: MAGNESIUM 1.8 MG/DL (1.3-2.1); PHOSPHORUS 1.6 MG/DL (2.3-4.7)
[2022-01-10] MEDS ORDERED: SODIUM CHLORIDE 0.9% 50ML 50 ML ONE (08:09)
[2022-01-10] MEDS: FOLIC ACID MDV 1 MG in SODIUM CHLORIDE 0.9% 50ML 50 ML IV SCH (09:00)
[2022-01-10] MEDS ORDERED: FUROSEMIDE INJ 10 MG/ML 2 ML VIAL IV ONE (09:00)
[2022-01-10] MEDS: SPIRONOLACTONE 25 MG TAB PO SCH (09:00)
[2022-01-10] MEDS ORDERED: POTASSIUM CHLORIDE 20MEQ/100ML 200 ML IV ONE (09:00)
[2022-01-10] MEDS: CEFTRIAXONE 2 GM in SODIUM CHLORIDE 0.9% 100 ML IV SCH (09:00)
[2022-01-10] MEDS ORDERED: SODIUM PHOSPHATE IN 0.9 % NACL 15 MMOL in SODIUM CHLORIDE 0.9% 250ML 250 ML IV ONE ×2 (13:00)
[2022-01-10] MEDS: NOREPINEPHRINE 8 MG/D5W 250 ML 250 ML IV SCH (14:41)
[2022-01-10] MEDS: ACETAZOLAMIDE SODIUM 500 MG/VIAL IV SCH (15:42)
[2022-01-10] MEDS: ACETAMINOPHEN 325 MG TAB PO PRN (22:12)
[2022-01-11] VITALS (73 sets, daily range): BP systolic 86–143; BP diastolic 39–113
[2022-01-11] MEDS: DEXMEDETOMIDINE 400MCG/NS100ML 100 ML IV PRN ×5 (03:57→14:04)
[2022-01-11 04:45] LABS: BASOPHILS # (AUTO) 0.2 (0.0-0.1); BASOPHILS % 0.6 % (0.0-1.0); EOSINOPHILS % 0.1 % (0.0-6.0); HEMATOCRIT 27.9 % (38.2-49.6); HEMOGLOBIN 9.3 g/dL (14.0-18.0); LYMPHOCYTES # (AUTO) 1.7 (1.0-3.2); LYMPHOCYTES % 5.4 % (18.0-39.1); MEAN CORPUSCULAR HEMOGLOBIN 34.3 pg (28-32); MEAN CORPUSCULAR HGB CONC 33.3 g/dL (31-35); MONOCYTES # (AUTO) 2.3 (0.2-0.8); MONOCYTES % 7.4 % (4.4-11.3); NEUTROPHILS # (AUTO) 26.1 (2.1-6.9); NEUTROPHILS % 84.8 % (38.7-80.0); PLATELET COUNT 165 x10e3/uL (140-360); RED BLOOD COUNT 2.71 x10e6/uL (4.3-5.7); RED CELL DISTRIBUTION WIDTH 22.9 % (11.7-14.4)
[2022-01-11] MEDS: VANCOMYCIN 250MG/5ML ORAL SOLN PO SCH (04:45)
[2022-01-11] MEDS: ACETAMINOPHEN 325 MG TAB PO PRN (04:59)
[2022-01-11 05:04] LABS: ALBUMIN 2.3 g/dL (3.5-5.0); ALBUMIN/GLOBULIN RATIO 0.7 (0.8-2.0); ANION GAP 20.5 mmol/L (8-16); CALCIUM 8.3 mg/dL (8.4-10.2); CREATININE, SERUM 2.34 mg/dL (0.72-1.25); POTASSIUM 4.5 mmol/L (3.5-5.1)
[2022-01-11 07:47] LABS: LYMPHOCYTES % (MANUAL) 5 % (19-48); MONOCYTES % (MANUAL) 4 % (3.4-9.0); NEUTROPHILS % (MANUAL) 91 % (40-74); PLATELET ESTIMATE ADEQUATE; PLATELET MORPHOLOGY COMMENT NORMAL; RBC MORPHOLOGY COMMENT NORMAL
[2022-01-11] MEDS: MIDODRINE HCL 5 MG TABLET PO SCH ×3 (08:00→16:00)
[2022-01-11] MEDS ORDERED: SODIUM CHLORIDE 0.9% 50ML 50 ML ONE (08:26)
[2022-01-11] MEDS: ACETAZOLAMIDE SODIUM 500 MG/VIAL IV SCH (08:30)
[2022-01-11] MEDS: FOLIC ACID MDV 1 MG in SODIUM CHLORIDE 0.9% 50ML 50 ML IV SCH (08:35)
[2022-01-11] MEDS: CEFTRIAXONE 2 GM in SODIUM CHLORIDE 0.9% 100 ML IV SCH (08:36)
[2022-01-11] MEDS: SPIRONOLACTONE 25 MG TAB PO SCH (08:37)
[2022-01-11] MEDS ORDERED: Vancomycin IV 1 GM in SODIUM CHLORIDE 0.9% 250ML 250 ML IV ONE (10:00)
[2022-01-11 11:43] LABS: ABG HCO3 24 mmol/L (22-26); ABG PCO2 32 mmHg (35-45); ABG PH 7.49 (7.35-7.45); ABG PO2 135 mmHg (80-105); ABG TCO2 25
[2022-01-11] MEDS ORDERED: ALBUMIN 25% 12.5GM 0.25 GM/ML BTL IV PRN (14:00)
[2022-01-11] MEDS ORDERED: SODIUM CHLORIDE 0.9% 1000ML 2,000 ML IV PRN (14:00)
[2022-01-11] MEDS ORDERED: HEPARIN SOD (PORCINE) 1000 UNIT/ML SDV IV PRN (14:00)
[2022-01-11] MEDS ORDERED: SODIUM CHLORIDE 0.9% 250ML 500 ML IV PRN (14:00)
[2022-01-11] MEDS ORDERED: MANNITOL 25% 12.5GM/50 ML VIAL IV PRN (14:00)
[2022-01-11 14:08] LABS: CLARITY,URINE CLEAR (CLEAR); COLOR,URINE ORANGE (YELLOW); KETONES,URINE NEGATIVE (NEGATIVE); LEUKOCYTE ESTERASE ,URINE NEGATIVE (NEGATIVE); NITRITE,URINE NEGATIVE (NEGATIVE); PROTEIN,URINE DIPSTICK 2+ (NEGATIVE); URINE UROBILINOGEN 0.2 mg/dL (0.2 - 1)
[2022-01-11 14:41] LABS: AMORPHOUS SEDIMENT,URINE MODERATE (FEW); BACTERIA,URINE RARE /HPF; WBC,URINE (MAN) 0-5 /HPF (0-5)
[2022-01-11] MEDS: HEPARIN 25,000 UNIT 1,500 UNIT in DEXTROSE 5% 250ML 250 ML IV SCH (16:40)
[2022-01-11] MEDS: DEXMEDETOMIDINE 100 ML IV PRN ×2 (16:56→22:15)
[2022-01-11] MEDS: NOREPINEPHRINE 8 MG/D5W 250 ML 250 ML IV SCH (23:06)
[2022-01-12] VITALS (59 sets, daily range): BP systolic 91–135; BP diastolic 38–78
[2022-01-12] MEDS: DEXMEDETOMIDINE 100 ML IV PRN ×6 (02:47→21:24)
[2022-01-12] MEDS: LORAZEPAM INJ 2 MG/ML VIAL IV PRN (04:19)
[2022-01-12 05:00] LABS: BASOPHILS # (AUTO) 0.1 (0.0-0.1); BASOPHILS % 0.5 % (0.0-1.0); EOSINOPHILS # (AUTO) 0.1 (0.0-0.4); EOSINOPHILS % 0.2 % (0.0-6.0); HEMATOCRIT 27.1 % (38.2-49.6); HEMOGLOBIN 8.9 g/dL (14.0-18.0); LYMPHOCYTES # (AUTO) 1.4 (1.0-3.2); LYMPHOCYTES % 5.4 % (18.0-39.1); MEAN CORPUSCULAR HEMOGLOBIN 34.2 pg (28-32); MEAN CORPUSCULAR HGB CONC 32.8 g/dL (31-35); MEAN CORPUSCULAR VOLUME 104.2 fL (81-99); MONOCYTES # (AUTO) 2.3 (0.2-0.8); MONOCYTES % 8.6 % (4.4-11.3); NEUTROPHILS # (AUTO) 21.6 (2.1-6.9); NEUTROPHILS % 82.7 % (38.7-80.0); PLATELET COUNT 179 x10e3/uL (140-360); RED CELL DISTRIBUTION WIDTH 23.5 % (11.7-14.4)
[2022-01-12 05:34] LABS: ALBUMIN 2.1 g/dL (3.5-5.0); ALBUMIN/GLOBULIN RATIO 0.7 (0.8-2.0); ANION GAP 17.6 mmol/L (8-16); CALCIUM 8.2 mg/dL (8.4-10.2); CREATININE, SERUM 2.38 mg/dL (0.72-1.25); POTASSIUM 3.6 mmol/L (3.5-5.1)
[2022-01-12] MEDS: HEPARIN 25,000 UNIT 1,500 UNIT in DEXTROSE 5% 250ML 250 ML IV SCH ×2 (06:41→13:05)
[2022-01-12] MEDS: MIDODRINE HCL 5 MG TABLET PO SCH ×3 (07:59→16:22)
[2022-01-12] MEDS: SPIRONOLACTONE 25 MG TAB PO SCH (07:59)
[2022-01-12 08:36] LABS: ABG HCO3 23 mmol/L (22-26); ABG PCO2 42 mmHg (35-45); ABG PH 7.36 (7.35-7.45); ABG PO2 128 mmHg (80-105); ABG TCO2 24
[2022-01-12] MEDS: FOLIC ACID MDV 1 MG in SODIUM CHLORIDE 0.9% 50ML 50 ML IV SCH (08:36)
[2022-01-12] MEDS ORDERED: HEPARIN SOD (PORCINE) 1000 UNIT/ML 10ML MDV IV PRN (10:45)
[2022-01-12] MEDS ORDERED: SODIUM CHLORIDE 0.9% 1000ML 2,000 ML IV PRN (10:45)
[2022-01-12] MEDS: CEFEPIME 1 GM in SODIUM CHLORIDE 0.9% 50ML 50 ML IV SCH (11:08)
[2022-01-12] MEDS: ACETAMINOPHEN 325 MG TAB PO PRN (15:42)
[2022-01-12] MEDS: NOREPINEPHRINE 8 MG/D5W 250 ML 250 ML IV SCH (21:24)
[2022-01-13] VITALS (67 sets, daily range): BP systolic 86–134; BP diastolic 41–115
[2022-01-13] MEDS: DEXMEDETOMIDINE 100 ML IV PRN ×5 (01:50→23:16)
[2022-01-13 05:07] LABS: BASOPHILS # (AUTO) 0.1 (0.0-0.1); BASOPHILS % 0.5 % (0.0-1.0); EOSINOPHILS # (AUTO) 0.1 (0.0-0.4); EOSINOPHILS % 0.2 % (0.0-6.0); HEMATOCRIT 25.4 % (38.2-49.6); HEMOGLOBIN 8.6 g/dL (14.0-18.0); LYMPHOCYTES # (AUTO) 2.4 (1.0-3.2); LYMPHOCYTES % 9.9 % (18.0-39.1); MEAN CORPUSCULAR HEMOGLOBIN 34.1 pg (28-32); MEAN CORPUSCULAR HGB CONC 33.9 g/dL (31-35); MEAN CORPUSCULAR VOLUME 100.8 fL (81-99); MONOCYTES # (AUTO) 2.2 (0.2-0.8); MONOCYTES % 9.2 % (4.4-11.3); NEUTROPHILS # (AUTO) 18.4 (2.1-6.9); NEUTROPHILS % 75.8 % (38.7-80.0); PLATELET COUNT 202 x10e3/uL (140-360); RED BLOOD COUNT 2.52 x10e6/uL (4.3-5.7); RED CELL DISTRIBUTION WIDTH 23.8 % (11.7-14.4)
[2022-01-13 05:31] LABS: ALBUMIN 2.1 g/dL (3.5-5.0); ALBUMIN/GLOBULIN RATIO 0.6 (0.8-2.0); ANION GAP 17.9 mmol/L (8-16); CALCIUM 8.3 mg/dL (8.4-10.2); CREATININE, SERUM 2.26 mg/dL (0.72-1.25); POTASSIUM 3.9 mmol/L (3.5-5.1)
[2022-01-13] MEDS: ACETAMINOPHEN 325 MG TAB PO PRN ×2 (05:59→11:22)
[2022-01-13] MEDS: HEPARIN 25,000 UNIT 1,500 UNIT in DEXTROSE 5% 250ML 250 ML IV SCH ×2 (06:26→23:18)
[2022-01-13 07:32] LABS: MAGNESIUM 1.7 MG/DL (1.3-2.1); PHOSPHORUS 4.1 MG/DL (2.3-4.7)
[2022-01-13] MEDS: MIDODRINE HCL 5 MG TABLET PO SCH ×3 (07:39→17:02)
[2022-01-13 07:53] LABS: ABG PCO2 34 mmHg (35-45); ABG PH 7.44 (7.35-7.45)
[2022-01-13 07:54] LABS: ABG HCO3 23 mmol/L (22-26); ABG PO2 123 mmHg (80-105); ABG TCO2 24
[2022-01-13] MEDS: SPIRONOLACTONE 25 MG TAB PO SCH (08:00)
[2022-01-13] MEDS: FOLIC ACID MDV 1 MG in SODIUM CHLORIDE 0.9% 50ML 50 ML IV SCH (08:00)
[2022-01-13 08:24] LABS: LYMPHOCYTES % (MANUAL) 8 % (19-48); MONOCYTES % (MANUAL) 4 % (3.4-9.0); MYELOCYTES % (MANUAL) 2 % (0-0); NEUTROPHILS % (MANUAL) 86 % (40-74); PLATELET ESTIMATE ADEQUATE; PLATELET MORPHOLOGY COMMENT NORMAL; RBC MORPHOLOGY COMMENT NORMAL
[2022-01-13] MEDS: NOREPINEPHRINE 8 MG/D5W 250 ML 250 ML IV SCH ×2 (11:31→23:16)
[2022-01-13] MEDS: CEFEPIME 1 GM in SODIUM CHLORIDE 0.9% 50ML 50 ML IV SCH (12:11)
[2022-01-13] MEDS: FLUCONAZOLE 200 MG/100 ML 100 ML IV SCH (12:44)
[2022-01-13] MEDS: LORAZEPAM INJ 2 MG/ML VIAL IV PRN (14:19)
[2022-01-14] VITALS (86 sets, daily range): BP systolic 82–132; BP diastolic 36–106
[2022-01-14] MEDS: DEXMEDETOMIDINE 100 ML IV PRN ×4 (03:50→16:13)
[2022-01-14 05:27] LABS: BASOPHILS # (AUTO) 0.1 (0.0-0.1); BASOPHILS % 0.6 % (0.0-1.0); EOSINOPHILS # (AUTO) 0.3 (0.0-0.4); EOSINOPHILS % 1.3 % (0.0-6.0); HEMATOCRIT 26.5 % (38.2-49.6); HEMOGLOBIN 8.8 g/dL (14.0-18.0); LYMPHOCYTES # (AUTO) 2.7 (1.0-3.2); LYMPHOCYTES % 12.2 % (18.0-39.1); MEAN CORPUSCULAR HEMOGLOBIN 33.7 pg (28-32); MEAN CORPUSCULAR HGB CONC 33.2 g/dL (31-35); MEAN CORPUSCULAR VOLUME 101.5 fL (81-99); MONOCYTES # (AUTO) 1.8 (0.2-0.8); MONOCYTES % 8.1 % (4.4-11.3); NEUTROPHILS # (AUTO) 16.5 (2.1-6.9); NEUTROPHILS % 75.9 % (38.7-80.0); PLATELET COUNT 235 x10e3/uL (140-360); RED BLOOD COUNT 2.61 x10e6/uL (4.3-5.7)
[2022-01-14 05:51] LABS: ALBUMIN/GLOBULIN RATIO 0.5 (0.8-2.0); ANION GAP 18.6 mmol/L (8-16); CALCIUM 8.4 mg/dL (8.4-10.2); CREATININE, SERUM 1.7 mg/dL (0.72-1.25); POTASSIUM 3.6 mmol/L (3.5-5.1)
[2022-01-14] MEDS: HEPARIN 25,000 UNIT 1,500 UNIT in DEXTROSE 5% 250ML 250 ML IV SCH ×2 (06:31→12:58)
[2022-01-14 08:03] LABS: ABG HCO3 24 mmol/L (22-26); ABG PCO2 35 mmHg (35-45); ABG PH 7.43 (7.35-7.45); ABG PO2 106 mmHg (80-105); ABG TCO2 25
[2022-01-14] MEDS: SPIRONOLACTONE 25 MG TAB PO SCH (08:12)
[2022-01-14] MEDS: MIDODRINE HCL 5 MG TABLET PO SCH ×3 (08:12→16:43)
[2022-01-14] MEDS: CEFEPIME 1 GM in SODIUM CHLORIDE 0.9% 50ML 50 ML IV SCH (08:12)
[2022-01-14] MEDS: FOLIC ACID MDV 1 MG in SODIUM CHLORIDE 0.9% 50ML 50 ML IV SCH (10:04)
[2022-01-14] MEDS: LORAZEPAM INJ 2 MG/ML VIAL IV PRN ×2 (10:05→19:40)
[2022-01-14] MEDS: FLUCONAZOLE 200 MG/100 ML 100 ML IV SCH (12:04)
[2022-01-14] MEDS: ACETAMINOPHEN 325 MG TAB PO PRN (12:05)
[2022-01-15] VITALS (102 sets, daily range): BP systolic 42–130; BP diastolic 32–97
[2022-01-15] MEDS ORDERED: MAGNESIUM HYDROXIDE 30 ML UDC NG ONE (02:15)
[2022-01-15] MEDS: LORAZEPAM INJ 2 MG/ML VIAL IV PRN ×4 (02:36→20:14)
[2022-01-15 06:26] LABS: BASOPHILS # (AUTO) 0.1 (0.0-0.1); BASOPHILS % 0.6 % (0.0-1.0); EOSINOPHILS # (AUTO) 0.3 (0.0-0.4); EOSINOPHILS % 1.2 % (0.0-6.0); HEMATOCRIT 24.4 % (38.2-49.6); HEMOGLOBIN 8.2 g/dL (14.0-18.0); LYMPHOCYTES # (AUTO) 2.5 (1.0-3.2); LYMPHOCYTES % 11.4 % (18.0-39.1); MEAN CORPUSCULAR HGB CONC 33.6 g/dL (31-35); MEAN CORPUSCULAR VOLUME 101.2 fL (81-99); MONOCYTES # (AUTO) 1.3 (0.2-0.8); MONOCYTES % 6.2 % (4.4-11.3); NEUTROPHILS # (AUTO) 17.1 (2.1-6.9); NEUTROPHILS % 78.8 % (38.7-80.0); PLATELET COUNT 238 x10e3/uL (140-360); RED BLOOD COUNT 2.41 x10e6/uL (4.3-5.7); RED CELL DISTRIBUTION WIDTH 24.8 % (11.7-14.4)
[2022-01-15 06:46] LABS: ALBUMIN 1.9 g/dL (3.5-5.0); ALBUMIN/GLOBULIN RATIO 0.6 (0.8-2.0); ANION GAP 16.5 mmol/L (8-16); CREATININE, SERUM 2.19 mg/dL (0.72-1.25); POTASSIUM 3.5 mmol/L (3.5-5.1)
[2022-01-15 08:30] LABS: ABG HCO3 22 mmol/L (22-26); ABG PCO2 34 mmHg (35-45); ABG PH 7.43 (7.35-7.45); ABG PO2 112 mmHg (80-105); ABG TCO2 23
[2022-01-15] MEDS: HEPARIN 25,000 UNIT 1,500 UNIT in DEXTROSE 5% 250ML 250 ML IV SCH (08:34)
[2022-01-15] MEDS: CEFEPIME 1 GM in SODIUM CHLORIDE 0.9% 50ML 50 ML IV SCH (08:35)
[2022-01-15] MEDS: MIDODRINE HCL 5 MG TABLET PO SCH ×3 (08:35→16:46)
[2022-01-15] MEDS: SPIRONOLACTONE 25 MG TAB PO SCH (08:35)
[2022-01-15] MEDS: NOREPINEPHRINE 8 MG/D5W 250 ML 250 ML IV SCH (08:47)
[2022-01-15] MEDS: FOLIC ACID MDV 1 MG in SODIUM CHLORIDE 0.9% 50ML 50 ML IV SCH (08:47)
[2022-01-15] MEDS: DEXMEDETOMIDINE 100 ML IV PRN ×3 (09:49→17:30)
[2022-01-15] MEDS ORDERED: MAGNESIUM HYDROXIDE 30 ML UDC PO ONE (10:00)
[2022-01-15] MEDS: FLUCONAZOLE 200 MG/100 ML 100 ML IV SCH (11:48)
[2022-01-15] MEDS ORDERED: HEPARIN 25,000 UNIT DRIP IV ONE (19:53)
[2022-01-15] MEDS ORDERED: LORAZEPAM INJ 2 MG/ML VIAL ONE (20:18)
[2022-01-15 20:38] LABS: INR 1.49; PROTHROMBIN TIME 19.3 seconds (11.9-14.5)
[2022-01-16] VITALS (42 sets, daily range): BP systolic 89–117; BP diastolic 38–78
[2022-01-16] MEDS: LORAZEPAM INJ 2 MG/ML VIAL IV PRN ×2 (02:10→05:30)
[2022-01-16 05:43] LABS: BASOPHILS # (AUTO) 0.2 (0.0-0.1); BASOPHILS % 0.6 % (0.0-1.0); EOSINOPHILS # (AUTO) 0.3 (0.0-0.4); EOSINOPHILS % 1.1 % (0.0-6.0); HEMATOCRIT 23.6 % (38.2-49.6); HEMOGLOBIN 8.1 g/dL (14.0-18.0); LYMPHOCYTES # (AUTO) 2.9 (1.0-3.2); LYMPHOCYTES % 11.1 % (18.0-39.1); MEAN CORPUSCULAR HEMOGLOBIN 34.8 pg (28-32); MEAN CORPUSCULAR HGB CONC 34.3 g/dL (31-35); MEAN CORPUSCULAR VOLUME 101.3 fL (81-99); MONOCYTES # (AUTO) 1.6 (0.2-0.8); MONOCYTES % 6.1 % (4.4-11.3); NEUTROPHILS # (AUTO) 20.6 (2.1-6.9); PLATELET COUNT 263 x10e3/uL (140-360); RED BLOOD COUNT 2.33 x10e6/uL (4.3-5.7); RED CELL DISTRIBUTION WIDTH 24.8 % (11.7-14.4)
[2022-01-16 06:07] LABS: ALBUMIN 2.1 g/dL (3.5-5.0); ALBUMIN/GLOBULIN RATIO 0.6 (0.8-2.0); ANION GAP 16.9 mmol/L (8-16); CALCIUM 8.5 mg/dL (8.4-10.2); CREATININE, SERUM 2.27 mg/dL (0.72-1.25); POTASSIUM 3.9 mmol/L (3.5-5.1)
[2022-01-16] MEDS: MIDODRINE HCL 5 MG TABLET PO SCH ×2 (08:05→11:07)
[2022-01-16] MEDS: SPIRONOLACTONE 25 MG TAB PO SCH (08:06)
[2022-01-16] MEDS: CEFEPIME 1 GM in SODIUM CHLORIDE 0.9% 50ML 50 ML IV SCH (08:06)
[2022-01-16] MEDS: FOLIC ACID MDV 1 MG in SODIUM CHLORIDE 0.9% 50ML 50 ML IV SCH (08:23)
[2022-01-16] MEDS ORDERED: FUROSEMIDE INJ 10 MG/ML 4 ML VIAL IV ONE (08:30)
[2022-01-16 08:49] LABS: ABG HCO3 21 mmol/L (22-26); ABG PCO2 32 mmHg (35-45); ABG PH 7.42 (7.35-7.45); ABG PO2 94 mmHg (80-105); ABG TCO2 22
[2022-01-16 08:51] LABS: LYMPHOCYTES % (MANUAL) 9 % (19-48); MONOCYTES % (MANUAL) 4 % (3.4-9.0); MYELOCYTES % (MANUAL) 1 % (0-0); NEUTROPHILS % (MANUAL) 85 % (40-74); PLATELET ESTIMATE ADEQUATE; PLATELET MORPHOLOGY COMMENT NORMAL; RBC MORPHOLOGY COMMENT NORMAL
[2022-01-16] MEDS ORDERED: BALSAM PERU/CASTOR OIL 60 GM OINT...G. TP SCH (09:00)
[2022-01-16] MEDS: NOREPINEPHRINE 8 MG/D5W 250 ML 250 ML IV SCH ×2 (09:15→12:31)
[2022-01-16] MEDS: DEXMEDETOMIDINE 100 ML IV PRN (10:53)
[2022-01-16] MEDS: HEPARIN 25,000 UNIT 1,500 UNIT in DEXTROSE 5% 250ML 250 ML IV SCH (10:56)
[2022-01-16] MEDS: FLUCONAZOLE 200 MG/100 ML 100 ML IV SCH (11:07)
== END 2022-01-16 13:21 | disposition short-term general hospital (02) | DRG 870 ==
LOC: ER 20:32 → ERHOLD 21:53 → MED/SURG2 12-30 01:50 → ICU 12-31 16:58
PROVIDERS: ADMIT Family Medicine; ATTEND Family Medicine
PROC: 3E043XZ Introduction of Vasopressor into Central Vein, Percutaneous Approach (ICD-10-PCS; 2022-01-01)
PROC: 02HV33Z Insertion of Infusion Device into Superior Vena Cava, Percutaneous Approach (ICD-10-PCS; 2022-01-01)
PROC: 30243N1 Transfusion of Nonautologous Red Blood Cells into Central Vein, Percutaneous Approach (ICD-10-PCS; 2022-01-01)
PROC: 5A1935Z Respiratory Ventilation, Less than 24 Consecutive Hours (ICD-10-PCS; 2022-01-02)
PROC: 0BH18EZ Insertion of Endotracheal Airway into Trachea, Via Natural or Artificial Opening Endoscopic (ICD-10-PCS; 2022-01-02)
PROC: 02HV33Z Insertion of Infusion Device into Superior Vena Cava, Percutaneous Approach (ICD-10-PCS; 2022-01-07)
PROC: 0BH18EZ Insertion of Endotracheal Airway into Trachea, Via Natural or Artificial Opening Endoscopic (ICD-10-PCS; principal; 2022-01-10)
PROC: 5A1955Z Respiratory Ventilation, Greater than 96 Consecutive Hours (ICD-10-PCS; 2022-01-10)
PROC: 02HV33Z Insertion of Infusion Device into Superior Vena Cava, Percutaneous Approach (ICD-10-PCS; 2022-01-11)
PROC: 5A1D70Z Performance of Urinary Filtration, Intermittent, Less than 6 Hours Per Day (ICD-10-PCS; 2022-01-11)
DX: A41.51 Sepsis due to Escherichia coli [E. coli] (principal); K85.20 Alcohol induced acute pancreatitis without necrosis or infection; J69.0 Pneumonitis due to inhalation of food and vomit; R65.21 Severe sepsis with septic shock; J80 Acute respiratory distress syndrome; G93.41 Metabolic encephalopathy; N17.9 Acute kidney failure, unspecified; I47.1 Supraventricular tachycardia; K76.6 Portal hypertension; I85.10 Secondary esophageal varices without bleeding; F10.288 Alcohol dependence with other alcohol-induced disorder; E87.3 Alkalosis; F10.231 Alcohol dependence with withdrawal delirium; I82.621 Acute embolism and thrombosis of deep veins of right upper extremity; N39.0 Urinary tract infection, site not specified; K57.90 Diverticulosis of intestine, part unspecified, without perforation or abscess without bleeding; K70.30 Alcoholic cirrhosis of liver without ascites; E86.0 Dehydration; K70.10 Alcoholic hepatitis without ascites; D69.59 Other secondary thrombocytopenia; E78.5 Hyperlipidemia, unspecified; E83.42 Hypomagnesemia; E87.8 Other disorders of electrolyte and fluid balance, not elsewhere classified; E87.6 Hypokalemia; E79.0 Hyperuricemia without signs of inflammatory arthritis and tophaceous disease; E83.51 Hypocalcemia; E83.39 Other disorders of phosphorus metabolism; I12.9 Hypertensive chronic kidney disease with stage 1 through stage 4 chronic kidney disease, or unspecified chronic kidney disease; N18.9 Chronic kidney disease, unspecified; D50.0 Iron deficiency anemia secondary to blood loss (chronic)
CPT/HCPCS: 36415; 36584; 36600; 70450; 71045; 71250; 74018; 74176; 74177; 76700; 80048; 80053; 80061; 81001; 81161; 81220; 82105; 82140; 82150; 82248; 82270; 82378; 82533; 82607; 82728; 82746; 82805; 83540; 83605; 83690; 83735; 84100; 84155; 84443; 84466; 85014; 85018; 85025; 85045; 85379; 85610; 85730; 86301; 86850; 86900; 86920; 87040; 87070; 87071; 87186; 87205; 90962; 93005; 93306; 93970; 94002; 94003; 94660; 94799; 99251; 99284; J0610; J0692; J0696; J1450; J1580; J1644; J1940; J2060; J2150; J2185; J2250; J2353; J2354; J2370; J3370; J3411; J3430; J3475; J3480; J3486; J7030; J7050; J7070; J7121; P9016; P9047; Q9967; U0002